=== PATIENT | male | born 1960 | race Caucasian/White ===

== ENCOUNTER 2018-08-26 11:33 | Emergency (ER) | payer OTHER ==
[~2018-08-26] VITALS: Ht 182.9 cm; Wt 104.5 kg
[2018-08-26 13:17] LABS: HEMATOCRIT 46.2 % (42.0-52.0); HEMOGLOBIN 15.9 g/dl (13.5-17.5); MEAN CORPUSCULAR HGB CONC 34.4 g/dl (32.0-36.5); MEAN CORPUSCULAR VOLUME 98.9 fl (80.0-96.0); PLATELET COUNT, AUTOMATED 328 10^3/uL (150-450); RED BLOOD COUNT 4.67 10^6/uL (4.30-6.10); WHITE BLOOD COUNT 9.8 10^3/uL (4.0-10.0)
[2018-08-26 13:50] LABS: AMPHETAMINES LEVEL URINE NEGATIVE (NEGATIVE); BARBITURATES URINE NEGATIVE (NEGATIVE); BENZODIAZEPINES URINE NEGATIVE (NEGATIVE); CANNABINOIDS URINE NEGATIVE (NEGATIVE); COCAINE METABOLITE URINE NEGATIVE (NEGATIVE); METHADONE URINE NEGATIVE (NEGATIVE); OPIATES URINE NEGATIVE (NEGATIVE); PHENCYCLIDINE URINE NEGATIVE (NEGATIVE)
[2018-08-26 13:52] LABS: ACETAMINOPHEN LEVEL < 2.0 UG/ML (10.0-30.0); ALBUMIN 3.7 GM/DL (3.2-5.2); ALT/SGPT 42 U/L (12-78); BILIRUBIN,DIRECT 0.1 MG/DL (0.0-0.2); BILIRUBIN,TOTAL 0.2 MG/DL (0.2-1.0); BLOOD UREA NITROGEN 7 MG/DL (7-18); CALCIUM LEVEL 8.9 MG/DL (8.5-10.1); CARBON DIOXIDE LEVEL 27 MEQ/L (21-32); CHLORIDE LEVEL 105 MEQ/L (98-107); ETHYL ALCOHOL (ETHANOL) 0.279 % (0.000-0.010); GLOMERULAR FILTRATION RATE > 60.0 (>56); GLUCOSE, FASTING 98 MG/DL (70-100); POTASSIUM SERUM 4.1 MEQ/L (3.5-5.1); SALICYLATE LEVEL < 1.7 MG/DL (5.0-30.0); SODIUM LEVEL 142 MEQ/L (136-145); TOTAL PROTEIN 7.9 GM/DL (6.4-8.2)
[2018-08-26] MEDS ORDERED: OXAZEPAM 15 MG CAP PO ONE ×2 (17:00→20:45)
[2018-08-26] MEDS ORDERED: LISI10TA4 PO (17:38)
[2018-08-26 17:45] VITALS: BP 180/110
[2018-08-26] MEDS ORDERED: LISINOPRIL 10 MG TAB PO ONE (17:45)
[2018-08-26] MEDS ORDERED: CHLORTHALIDONE 12.5MG PER 1/2 TABLET PO ONE (22:30)
[2018-08-26] MEDS ORDERED: cloNIDine 0.2 MG TAB PO ONE (23:00)
[2018-08-27] MEDS ORDERED: METAL LOCK LOOP XX ONE (04:32)
[2018-08-27] MEDS ORDERED: OXAZEPAM 15 MG CAP PO ONE ×2 (08:15→18:30)
[2018-08-27] MEDS ORDERED: LISINOPRIL 10 MG TAB PO ONE (18:30)
--- NOTE | 2018-08-28 08:15 | ECGEPIP ---
Stationary ECG Study [facility] - ED Test Date: 2018-08-26 Pat Name: SHONNA WATSON Department: Room: - Gender: M Sport Intern: : 1960 Requested By: Kael Villavicencio Order Number: [id number] Reading MD: Kael Hogan Measurements Intervals [place] Rate: 80 P: 52 AK: 152 QRS: 26 QRSD: 106 T: 30 QT: 379 QTc: 438 Interpretive Statements SINUS RHYTHM NO PRIORS FOR COMPARISON Electronically Signed On 08-28-2018 8:14:56 EST by Kael Hogan
[2018-08-28] MEDS ORDERED: OXAZEPAM 15 MG CAP PO ONE (11:30)
[2018-08-28 17:04] VITALS: BP 136/74
[2018-08-28] MEDS ORDERED: LISINOPRIL 10 MG TAB PO SCH (21:00)
[2018-10-04] MEDS ORDERED: GABA-843 PO (12:40)
[2018-10-04] MEDS ORDERED: SILD100T PO (12:40)
[2018-10-04] MEDS ORDERED: NALT50TA4 PO (12:40)
[2018-10-07] MEDS ORDERED: THIA100TA PO (08:35)
[2018-10-07] MEDS ORDERED: COLC1TAB13 PO (08:35)
[2018-10-07] MEDS ORDERED: FOLI1TAB11 PO (08:35)
[2018-10-07] MEDS ORDERED: AMLO10TA5 PO (08:35)
[2018-10-07] MEDS ORDERED: LISI-542 PO (08:35)
[2018-10-07] MEDS ORDERED: MULTCAP PO (08:35)
[2018-10-20] MEDS ORDERED: SM F PO (01:32)
[2018-10-20] MEDS ORDERED: VIAG100T PO (01:32)
[2018-10-20] MEDS ORDERED: RANI1TAB6 PO (01:32)
[2018-10-20] MEDS ORDERED: MULTCAP PO (01:32)
[2018-10-20] MEDS ORDERED: METO50TA7 PO (01:32)
[2018-10-20] MEDS ORDERED: NALT50TA4 PO (01:32)
[2018-10-20] MEDS ORDERED: ACAM0.05 PO (01:32)
[2018-10-20] MEDS ORDERED: COLC1TAB13 PO ×2 (01:32→02:43)
[2018-10-20] MEDS ORDERED: THIA100TA PO (01:32)
[2018-10-20] MEDS ORDERED: GABA-843 PO (01:32)
[2018-10-20] MEDS ORDERED: ALLO100T PO (01:32)
[2018-10-20] MEDS ORDERED: D 101TAB PO (01:32)
[2018-10-20] MEDS ORDERED: AMLO10TA5 PO (02:39)
[2018-10-20] MEDS ORDERED: LISI-542 PO (02:39)
[2018-10-20] MEDS ORDERED: VITMTA PO (02:39)
[2018-10-20] MEDS ORDERED: FOLI1TAB11 PO (02:39)
[2018-10-20] MEDS ORDERED: PATIENT COMMENTS (02:46)
== END 2018-08-28 17:05 ==
LOC: M ED 11:33
DX: R45.851 Suicidal ideations (principal); F32.9 Major depressive disorder, single episode, unspecified; F10.120 Alcohol abuse with intoxication, uncomplicated; I10 Essential (primary) hypertension; Z79.899 Other long term (current) drug therapy
CPT/HCPCS: 36415; 80048; 80076; 80307; 84443; 85027; 93005; 99285; G0480

== ENCOUNTER 2018-10-03 18:50 | Inpatient (IN) | payer OTHER ==
[2018-10-03 19:22] LABS: HEMATOCRIT 50.3 % (42.0-52.0); HEMOGLOBIN 17.2 g/dl (13.5-17.5); MEAN CORPUSCULAR HEMOGLOBIN 32.8 pg (27.0-33.0); MEAN CORPUSCULAR HGB CONC 34.2 g/dl (32.0-36.5); MEAN CORPUSCULAR VOLUME 95.8 fl (80.0-96.0); PLATELET COUNT, AUTOMATED 269 10^3/uL (150-450); RED BLOOD COUNT 5.25 10^6/uL (4.30-6.10); RED CELL DISTRIBUTION WIDTH 12.1 % (11.5-14.5); WHITE BLOOD COUNT 10.5 10^3/uL (4.0-10.0)
[2018-10-03 19:59] LABS: ACETAMINOPHEN LEVEL < 2.0 UG/ML (10.0-30.0); ALBUMIN 3.9 GM/DL (3.2-5.2); ALBUMIN/GLOBULIN RATIO 0.85 (1.00-1.93); ALKALINE PHOSPHATASE 63 U/L (45-117); ALT/SGPT 30 U/L (12-78); ANION GAP 12 MEQ/L (8-16); AST/SGOT 37 U/L (7-37); BILIRUBIN,DIRECT 0.1 MG/DL (0.0-0.2); BILIRUBIN,TOTAL 0.2 MG/DL (0.2-1.0); BLOOD UREA NITROGEN 15 MG/DL (7-18); CALCIUM LEVEL 8.5 MG/DL (8.5-10.1); CARBON DIOXIDE LEVEL 24 MEQ/L (21-32); CHLORIDE LEVEL 103 MEQ/L (98-107); CREATININE FOR GFR 0.85 MG/DL (0.70-1.30); ETHYL ALCOHOL (ETHANOL) 0.377 % (0.000-0.010); GLOMERULAR FILTRATION RATE > 60.0 (>56); GLUCOSE, FASTING 107 MG/DL (70-100); POTASSIUM SERUM 4.5 MEQ/L (3.5-5.1); SALICYLATE LEVEL < 1.7 MG/DL (5.0-30.0); SODIUM LEVEL 139 MEQ/L (136-145); TOTAL PROTEIN 8.5 GM/DL (6.4-8.2)
[2018-10-03 20:39] LABS: AMPHETAMINES LEVEL URINE NEGATIVE (NEGATIVE); BARBITURATES URINE NEGATIVE (NEGATIVE); BENZODIAZEPINES URINE NEGATIVE (NEGATIVE); CANNABINOIDS URINE NEGATIVE (NEGATIVE); COCAINE METABOLITE URINE NEGATIVE (NEGATIVE); METHADONE URINE NEGATIVE (NEGATIVE); OPIATES URINE NEGATIVE (NEGATIVE); PHENCYCLIDINE URINE NEGATIVE (NEGATIVE)
[2018-10-03] MEDS: LISINOPRIL 10 MG TAB PO (21:45)
[2018-10-04] MEDS: MULTIVITAMINS/MINERALS THERAP 1 TAB PO (08:44)
[2018-10-04] MEDS: FOLIC ACID 1 MG TAB PO (08:44)
[2018-10-04] MEDS: THIAMINE 100 MG TAB PO ×2 (08:44→20:28)
[2018-10-04] MEDS: LISINOPRIL 10 MG TAB PO (09:10)
[2018-10-04 10:37] LABS: ETHYL ALCOHOL (ETHANOL) 0.037 % (0.000-0.010)
[2018-10-04] MEDS: LORazepam 2 MG TAB PO ×2 (11:59→13:05)
[2018-10-04] MEDS: ACETAMINOPHEN TAB 650MG DOSE (2X325MG) PO (11:59)
[2018-10-04] MEDS: NS 1,000 ML IV (13:12)
[2018-10-04] MEDS: LORazepam 2 MG/ML VIAL (J2060) IV (13:41)
[2018-10-04] MEDS: MULTIVITAMIN -ADULT INJECTION 10 ML, THIAMINE INJection 100 MG, FOLIC ACID 1 MG in NS 1... IV (14:00)
[2018-10-04 14:14] LABS: BASO # 0.1 10^3/uL (0.0-0.2); BASO % 0.9 % (0.0-1.0); EOS % 0.2 % (0.0-3.0); HEMATOCRIT 46.6 % (42.0-52.0); HEMOGLOBIN 15.8 g/dl (13.5-17.5); IMMATURE GRANULOCYTE % 0.3 % (0-3.0); LYMPH # 2.2 10^3/uL (1.5-4.5); LYMPH % 18.9 % (24.0-44.0); MEAN CORPUSCULAR HEMOGLOBIN 33.1 pg (27.0-33.0); MEAN CORPUSCULAR HGB CONC 33.9 g/dl (32.0-36.5); MEAN CORPUSCULAR VOLUME 97.5 fl (80.0-96.0); NEUTROPHILS # 8.2 10^3/uL (1.8-7.7); NEUTROPHILS % 70.7 % (36.0-66.0); PLATELET COUNT, AUTOMATED 217 10^3/uL (150-450); RED BLOOD COUNT 4.78 10^6/uL (4.30-6.10); RED CELL DISTRIBUTION WIDTH 11.9 % (11.5-14.5); WHITE BLOOD COUNT 11.6 10^3/uL (4.0-10.0)
[2018-10-04 14:32] LABS: ANION GAP 10 MEQ/L (8-16); BLOOD UREA NITROGEN 13 MG/DL (7-18); CALCIUM LEVEL 8.1 MG/DL (8.5-10.1); CARBON DIOXIDE LEVEL 26 MEQ/L (21-32); CHLORIDE LEVEL 101 MEQ/L (98-107); CREATININE FOR GFR 0.72 MG/DL (0.70-1.30); GLOMERULAR FILTRATION RATE > 60.0 (>56); GLUCOSE, FASTING 89 MG/DL (70-100); POTASSIUM SERUM 4.1 MEQ/L (3.5-5.1); SODIUM LEVEL 137 MEQ/L (136-145)
[2018-10-04] MEDS ORDERED: chlordiazePOXIDE 25 MG CAP PO (14:45)
[2018-10-04] MEDS ORDERED: ONDANSETRON 4 MG TAB (S0181) PO (14:45)
[2018-10-04] MEDS: **hydrALAZINE** 10 MG TAB PO (20:29)
[2018-10-04] MEDS: amLODIPine 5 MG TAB PO (21:41)
[2018-10-05] MEDS: **hydrALAZINE** 10 MG TAB PO (00:56)
[2018-10-05 05:38] LABS: HEMATOCRIT 43.7 % (42.0-52.0); HEMOGLOBIN 14.9 g/dl (13.5-17.5); MEAN CORPUSCULAR HEMOGLOBIN 33.4 pg (27.0-33.0); MEAN CORPUSCULAR HGB CONC 34.1 g/dl (32.0-36.5); PLATELET COUNT, AUTOMATED 193 10^3/uL (150-450); RED BLOOD COUNT 4.46 10^6/uL (4.30-6.10); RED CELL DISTRIBUTION WIDTH 11.8 % (11.5-14.5); WHITE BLOOD COUNT 9.4 10^3/uL (4.0-10.0)
[2018-10-05 06:05] LABS: ANION GAP 5 MEQ/L (8-16); BLOOD UREA NITROGEN 14 MG/DL (7-18); CALCIUM LEVEL 8.2 MG/DL (8.5-10.1); CARBON DIOXIDE LEVEL 29 MEQ/L (21-32); CHLORIDE LEVEL 101 MEQ/L (98-107); CREATININE FOR GFR 0.76 MG/DL (0.70-1.30); GLOMERULAR FILTRATION RATE > 60.0 (>56); GLUCOSE, FASTING 109 MG/DL (70-100); SODIUM LEVEL 135 MEQ/L (136-145)
[2018-10-05] MEDS: THIAMINE 100 MG TAB PO (07:58)
[2018-10-05] MEDS: amLODIPine 5 MG TAB PO ×2 (07:58→15:23)
[2018-10-05] MEDS: OXAZEPAM 10 MG CAP PO ×3 (07:58→21:24)
[2018-10-05] MEDS: FOLIC ACID 1 MG TAB PO (07:58)
[2018-10-05] MEDS: MULTIVITAMINS/MINERALS THERAP 1 TAB PO (07:58)
[2018-10-05] MEDS: ENOXAPARIN 30 MG/0.3 ML SYR (J1650) SC (09:00)
[2018-10-05] MEDS: LISINOPRIL 5 MG TAB PO (21:24)
[2018-10-06 05:32] LABS: HEMATOCRIT 44.2 % (42.0-52.0); HEMOGLOBIN 14.7 g/dl (13.5-17.5); MEAN CORPUSCULAR HEMOGLOBIN 32.9 pg (27.0-33.0); MEAN CORPUSCULAR HGB CONC 33.3 g/dl (32.0-36.5); MEAN CORPUSCULAR VOLUME 98.9 fl (80.0-96.0); PLATELET COUNT, AUTOMATED 200 10^3/uL (150-450); RED BLOOD COUNT 4.47 10^6/uL (4.30-6.10); RED CELL DISTRIBUTION WIDTH 11.7 % (11.5-14.5); WHITE BLOOD COUNT 7.1 10^3/uL (4.0-10.0)
[2018-10-06 05:59] LABS: ANION GAP 5 MEQ/L (8-16); BLOOD UREA NITROGEN 11 MG/DL (7-18); CALCIUM LEVEL 8.4 MG/DL (8.5-10.1); CARBON DIOXIDE LEVEL 29 MEQ/L (21-32); CHLORIDE LEVEL 102 MEQ/L (98-107); CREATININE FOR GFR 0.75 MG/DL (0.70-1.30); GLOMERULAR FILTRATION RATE > 60.0 (>56); GLUCOSE, FASTING 119 MG/DL (70-100); POTASSIUM SERUM 4.3 MEQ/L (3.5-5.1); SODIUM LEVEL 136 MEQ/L (136-145)
[2018-10-06] MEDS: OXAZEPAM 10 MG CAP PO ×2 (06:26→14:15)
[2018-10-06] MEDS: THIAMINE 100 MG TAB PO (08:44)
[2018-10-06] MEDS: MULTIVITAMINS/MINERALS THERAP 1 TAB PO (08:44)
[2018-10-06] MEDS: ENOXAPARIN 30 MG/0.3 ML SYR (J1650) SC (08:44)
[2018-10-06] MEDS: FOLIC ACID 1 MG TAB PO (08:44)
[2018-10-06] MEDS: LISINOPRIL 5 MG TAB PO ×2 (08:45→21:14)
[2018-10-06] MEDS: amLODIPine 10 MG TAB PO (08:45)
[2018-10-06] MEDS: ACETAMINOPHEN 325 MG TAB PO (11:29)
[2018-10-06] MEDS: COLCHICINE 0.6 MG TAB PO ×2 (15:34→16:30)
[2018-10-06 16:26] LABS: C REACTIVE PROTEIN QUANTITATIV 1.02 MG/DL (0.00-0.30)
[2018-10-06 16:42] LABS: ERYTHROCYTE SEDIMENTATION RATE 2 mm/hr (0-20)
[2018-10-07] MEDS ORDERED: SLF 3 ML SYR IV (04:00)
[2018-10-07 04:48] LABS: HEMATOCRIT 43.5 % (42.0-52.0); HEMOGLOBIN 14.8 g/dl (13.5-17.5); MEAN CORPUSCULAR HEMOGLOBIN 33.3 pg (27.0-33.0); MEAN CORPUSCULAR VOLUME 97.8 fl (80.0-96.0); PLATELET COUNT, AUTOMATED 206 10^3/uL (150-450); RED BLOOD COUNT 4.45 10^6/uL (4.30-6.10); RED CELL DISTRIBUTION WIDTH 11.6 % (11.5-14.5); WHITE BLOOD COUNT 11.5 10^3/uL (4.0-10.0)
[2018-10-07 05:13] LABS: ANION GAP 7 MEQ/L (8-16); BLOOD UREA NITROGEN 13 MG/DL (7-18); C REACTIVE PROTEIN QUANTITATIV 1.11 MG/DL (0.00-0.30); CALCIUM LEVEL 8.3 MG/DL (8.5-10.1); CARBON DIOXIDE LEVEL 26 MEQ/L (21-32); CHLORIDE LEVEL 102 MEQ/L (98-107); CREATININE FOR GFR 0.75 MG/DL (0.70-1.30); GLOMERULAR FILTRATION RATE > 60.0 (>56); GLUCOSE, FASTING 108 MG/DL (70-100); POTASSIUM SERUM 4.1 MEQ/L (3.5-5.1); SODIUM LEVEL 135 MEQ/L (136-145)
[2018-10-07] MEDS: SLF 3 ML SYR IV (05:13)
[2018-10-07 06:04] LABS: ERYTHROCYTE SEDIMENTATION RATE 6 mm/hr (0-20)
[2018-10-07] MEDS: FOLIC ACID 1 MG TAB PO (08:54)
[2018-10-07] MEDS: COLCHICINE 0.6 MG TAB PO (08:54)
[2018-10-07] MEDS: MULTIVITAMINS/MINERALS THERAP 1 TAB PO (08:54)
[2018-10-07] MEDS: LISINOPRIL 5 MG TAB PO (08:54)
[2018-10-07] MEDS: THIAMINE 100 MG TAB PO (08:54)
[2018-10-07] MEDS: amLODIPine 10 MG TAB PO (08:55)
[2018-10-07] MEDS: ENOXAPARIN 30 MG/0.3 ML SYR (J1650) SC (08:55)
== END 2018-10-07 10:43 | disposition home or self-care (01) | DRG 897 ==
LOC: M ED 18:50 → M ED INP 10-04 14:33 → M PCU 10-04 15:38
DX: F10.239 Alcohol dependence with withdrawal, unspecified (principal); R45.851 Suicidal ideations; I16.0 Hypertensive urgency; R45.850 Homicidal ideations; D72.829 Elevated white blood cell count, unspecified; M10.9 Gout, unspecified; Z91.14 Patient's other noncompliance with medication regimen; I10 Essential (primary) hypertension; Z79.899 Other long term (current) drug therapy

== ENCOUNTER 2018-10-24 13:09 | Inpatient (IN) | payer OTHER ==
[~2018-10-24 13:09] MED LIST: ACAM0.05 PO; ALLO100T PO; AMLO10TA5 PO; COLC1TAB13 PO; D 101TAB PO; FOLI1TAB11 PO; GABA-843 PO; LISI-542 PO; LISI10TA4 PO; METO50TA7 PO; MULTCAP PO; NALT50TA4 PO; PATIENT COMMENTS; RANI1TAB6 PO; SILD100T PO; SM F PO; THIA100TA PO; VIAG100T PO; VITMTA PO
[2018-10-24] MEDS ORDERED: MOM 30ML SUSPENSION UDC PO PRN (13:30)
[2018-10-24] MEDS ORDERED: MAALOX 30 ML SUSP *UDC PO PRN (13:30)
[2018-10-24 14:30] VITALS: BP 143/78
[2018-10-24 16:41] VITALS: BP 150/90
[2018-10-24] MEDS ORDERED: COLCHICINE 0.6 MG TAB PO PRN (17:15)
[2018-10-24] MEDS ORDERED: OXAZEPAM 15 MG CAP PO PRN (17:45)
[2018-10-24] MEDS: METOPROLOL TART 50 MG TAB PO SCH (20:49)
[2018-10-24] MEDS: GABAPENTIN 300 MG CAP PO SCH (20:49)
[2018-10-24] MEDS: FAMOTIDINE 20 MG TAB PO SCH (20:49)
[2018-10-24] MEDS: LISINOPRIL 5 MG TAB PO SCH (20:49)
[2018-10-24] MEDS: ACETAMINOPHEN TAB 650MG DOSE (2X325MG) PO PRN (20:50)
[2018-10-25 06:00] VITALS: BP 151/72
[2018-10-25] MEDS: FAMOTIDINE 20 MG TAB PO SCH ×2 (08:48→21:31)
[2018-10-25] MEDS: THIAMINE 100 MG TAB PO SCH (08:48)
[2018-10-25] MEDS: amLODIPine 10 MG TAB PO SCH (08:48)
[2018-10-25] MEDS: MULTIVITAMINS/MINERALS THERAP 1 TAB PO SCH (08:48)
[2018-10-25] MEDS: GABAPENTIN 300 MG CAP PO SCH ×3 (08:48→21:31)
[2018-10-25] MEDS: VITAMIN D 1,000 INTERNATIONAL UNITS TABLET PO SCH (08:48)
[2018-10-25] MEDS: FOLIC ACID 1 MG TAB PO SCH (08:48)
[2018-10-25] MEDS: ALLOPURINOL 100 MG TAB PO SCH (08:48)
[2018-10-25] MEDS: METOPROLOL TART 50 MG TAB PO SCH ×2 (08:48→21:31)
[2018-10-25] MEDS: ACETAMINOPHEN TAB 650MG DOSE (2X325MG) PO PRN ×3 (08:49→21:32)
[2018-10-25] MEDS: LISINOPRIL 5 MG TAB PO SCH ×2 (08:49→21:31)
[2018-10-25 08:50] VITALS: BP 138/88
[2018-10-25 12:00] VITALS: BP 129/67
[2018-10-25 18:00] VITALS: BP 136/78
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
[2018-10-26 06:00] VITALS: BP 144/76
[2018-10-26] MEDS: amLODIPine 10 MG TAB PO SCH (08:11)
[2018-10-26] MEDS: VITAMIN D 1,000 INTERNATIONAL UNITS TABLET PO SCH (08:11)
[2018-10-26] MEDS: ALLOPURINOL 100 MG TAB PO SCH (08:11)
[2018-10-26] MEDS: GABAPENTIN 300 MG CAP PO SCH ×3 (08:11→21:39)
[2018-10-26] MEDS: LISINOPRIL 5 MG TAB PO SCH ×2 (08:12→21:39)
[2018-10-26] MEDS: FAMOTIDINE 20 MG TAB PO SCH ×2 (08:12→21:39)
[2018-10-26] MEDS: METOPROLOL TART 50 MG TAB PO SCH ×2 (08:12→21:40)
[2018-10-26] MEDS: MULTIVITAMINS/MINERALS THERAP 1 TAB PO SCH (08:12)
[2018-10-26] MEDS: FOLIC ACID 1 MG TAB PO SCH (08:12)
[2018-10-26] MEDS: THIAMINE 100 MG TAB PO SCH (08:12)
[2018-10-26] MEDS: ACETAMINOPHEN TAB 650MG DOSE (2X325MG) PO PRN ×2 (08:13→21:41)
[2018-10-26] MEDS: FLUoxetine 10 MG CAP PO SCH (12:34)
[2018-10-26 18:00] VITALS: BP 128/61
[2018-10-26] MEDS: traZODone 50 MG TAB PO PRN ×2 (21:41→22:29)
[2018-10-27 06:17] VITALS: BP 140/73
[2018-10-27 07:16] LABS: ERYTHROCYTE SEDIMENTATION RATE 36 mm/hr (0-20)
[2018-10-27 07:17] LABS: C REACTIVE PROTEIN QUANTITATIV 1.45 MG/DL (0.00-0.30)
[2018-10-27 08:20] LABS: BLOOD UREA NITROGEN 13 MG/DL (7-18); CALCIUM LEVEL 9.3 MG/DL (8.5-10.1); CARBON DIOXIDE LEVEL 29 MEQ/L (21-32); CHLORIDE LEVEL 102 MEQ/L (98-107); CREATININE FOR GFR 0.75 MG/DL (0.70-1.30); GLOMERULAR FILTRATION RATE > 60.0 (>56); GLUCOSE, FASTING 110 MG/DL (70-100); POTASSIUM SERUM 4.1 MEQ/L (3.5-5.1); SODIUM LEVEL 141 MEQ/L (136-145)
[2018-10-27] MEDS: FAMOTIDINE 20 MG TAB PO SCH ×2 (08:57→21:41)
[2018-10-27] MEDS: GABAPENTIN 300 MG CAP PO SCH ×3 (08:57→21:37)
[2018-10-27] MEDS: VITAMIN D 1,000 INTERNATIONAL UNITS TABLET PO SCH (08:57)
[2018-10-27] MEDS: MULTIVITAMINS/MINERALS THERAP 1 TAB PO SCH (08:57)
[2018-10-27] MEDS: THIAMINE 100 MG TAB PO SCH (08:57)
[2018-10-27] MEDS: FOLIC ACID 1 MG TAB PO SCH (08:57)
[2018-10-27] MEDS: FLUoxetine 10 MG CAP PO SCH (08:57)
[2018-10-27] MEDS: amLODIPine 10 MG TAB PO SCH (08:58)
[2018-10-27] MEDS: METOPROLOL TART 50 MG TAB PO SCH ×2 (08:58→21:38)
[2018-10-27] MEDS: LISINOPRIL 5 MG TAB PO SCH ×2 (08:58→21:37)
[2018-10-27] MEDS: ALLOPURINOL 100 MG TAB PO SCH (08:58)
[2018-10-27 09:07] LABS: HEMATOCRIT 43.5 % (42.0-52.0); HEMOGLOBIN 14.7 g/dl (13.5-17.5); MEAN CORPUSCULAR HGB CONC 33.8 g/dl (32.0-36.5); MEAN CORPUSCULAR VOLUME 97.5 fl (80.0-96.0); PLATELET COUNT, AUTOMATED 315 10^3/uL (150-450); RED BLOOD COUNT 4.46 10^6/uL (4.30-6.10); WHITE BLOOD COUNT 12.4 10^3/uL (4.0-10.0)
[2018-10-27] MEDS: ACETAMINOPHEN TAB 650MG DOSE (2X325MG) PO PRN ×2 (09:31→21:42)
--- NOTE | 2018-10-27 09:50 | MHIPN ---
DATE: 10/26/2018 CHIEF COMPLAINT: Says feels better. SUBJECTIVE: Seen for followup. Indicates feels better, and that his mood is better. Says had a better night. Has been eating okay. Has been engaging with others. Denies any cravings for alcohol. MENTAL STATUS EXAMINATION: He is neat, he is cooperative, there is no agitation, no psychomotor retardation. Appears more relaxed, with a broader affect. He denies any thoughts of harming himself or anyone else at present. Does not appear internally preoccupied. Cognition grossly intact. Judgment is improved. Insight fair. ASSESSMENT: Other specified depressive disorder. Alcohol use disorder. Consider alcohol induced depressive disorder. The possibility of major depressive disorder as comorbid to alcohol use is also to be considered. PLAN: He will be started on Prozac at 10 mg daily, to be titrated upwards as per requirement. He is to be encouraged to participate in activities in the unit. Says he has had no cravings of alcohol. He will be seeing the treatment team as well as the psychiatrist tomorrow, and further recommendations will be made depending on the clinical picture. VITAL SIGNS: Blood pressure 138/90, pulse 72. We will continue with current precautions, including withdrawal precautions.
--- NOTE | 2018-10-27 14:23 | IPNPDOC ---
Date Seen The patient was seen on 10/27/18. Progress Note HPI: 58yoM admitted to [facility] for depressive disorder, being medically examined today. No acute medical complaints today. The pt reports his Rt elbow has been continuing to improve. Decreased pain, increased ROM. Decreased erythema and TTP. Denies any fevers, chills, weakness, fatigue, ALFARO, CP, SOB, cough, palpitations, abdominal pain, N/V/D or changes in bowel or bladder habits. PMH Acute toxic encephalopathy due to alcohol intoxication requiring airway protection s/p intubation and mechanical ventilation [facility] 10/20 to 10/21/18. Right Elbow / wrist pain/bone spurs right knee pain history of gout Suicide Ideation/Attempt Hypertension History of alcohol use. Erectile dysfunction. PE: GEN: 58yoM, appears stated age. Well-nourished, well developed. No acute dis tress. Alert and oriented x 3. Pleasant, interactive. HEENT: Normocephalic, atraumatic. Pupils are equal, round, and reactive to light. Extraocular movements are intact. No nystagmus appreciated. Sclera are nonicteric. Conjunctiva without injection. Nose midline. Nasal turbinates without bogginess. CHEST: Regular rate and rhythm, +S1, +S2 LUNGS: Clear to auscultation bilaterally. ABD: Round, soft, non-tender, non-distended. +Bowel sounds throughout. EXT: No lower extremity edema appreciated. Mild TTP around the Rt elbow, mils erythema and edema at the area of the olecranon bursa. SKIN: [place], dry, warm. No rashes. NEURO: No focal deficits appreciated. EKG 10/20/18 SINUS TACHYCARDIA WITH SHORT [place] INTERVAL NONSPECIFIC T-WAVE ABNORMALITY ABNORMAL RHYTHM ECG INCREASED RATE 10/04/18 Electronically Signed On 10-20-2018 13:46:21 EST by Kamille Aguiar A&P: 58yoM admitted to [facility] for depressive disorder Psych. Plan per Psychiatry. EKG on file. Follow up with PCP on discharge. Substance use. Management per psychiatry. Continue with MVI, Thiamine, and Folic Acid supplementation. Right Elbow /wrist pain/bone spurs. Orthopedics evaluated 10/23/18 and felt this was related to ulnar nerve contusion vs Olecranon bursitis. XR and CT reviewed by Orthopedics. Very minimal degenerative changes in the wrist and elbow joints. No fractures, no dislocations. ortho consulted Recommended monitor ESR and CRP. No indication for any splint or cast. Recommended continuing to work on wrist and elbow range of motion. Outpt F/U and plan for EMG. right knee pain Gabapentin 300mg TID. Tylenol as needed. history of gout on colchicine prn Allopurinol 100 mg daily. Hypertension. Metoprolol 50 mg BID, lisinopril 5 mg BID, norvasc 10 mg daily SBP 128-140 monitor VS, I&O, [facility] Sign[facility]/I&O Vital Signs Date Time Temp Pulse Resp B/P (MAP) Pulse Ox O2 Delivery O2 Flow Rate FiO2 10/27/18 08:58 59 140/73 10/27/18 06:17 97.3 14 Room Air 10/25/18 08:27 98.0 Laboratory Data 24H LABS Laboratory Tests 2 10/27/18 06:25: Nucleated Red Blood Cells % (auto) 0.0, Erythrocyte Sedimentation Rate 36H, Anion Gap 10, Glomerular Filtration Rate > 60.0, Blood Urea Nitrogen 13, Creatinine 0.75, Sodium Level 141, Potassium Level 4.1, Chloride Level 102, Carbon Dioxide Level 29, Calcium Level 9.3, C-Reactive Protein, Quantitative 1.45H CBC/BMP Laboratory Tests 10/27/18 06:25 Red Blood Count 4.46, Mean Corpuscular Volume 97.5 H, Mean Corpuscular Hemoglobin 33.0, Mean Corpuscular Hemoglobin Concent 33.8, Red Cell Distribution Width 12.0, Calcium Level 9.3 Lali Artis Oct 27, 2018 14:23
--- NOTE | 2018-10-27 14:23 | MHIPNPDOC ---
[facility] Progress Note Progress Note DATE OF SERVICE: 10/27/18 HISTORY: As per Dr. Barrett: "He is 58 years old and has a partner. He has been on a couple of occasions, has two daughters, both of whom live in the area, he is close with them. He is admitted to the inpatient psychiatry unit after he had come to the hospital a few days ago, had been drinking, and had felt suicidal. Was quite intoxicated, developed encephalopathy, delirium, was intubated, r evived, extubated, an afterwards I saw him on the medical floor, please refer to my consultation summary of 10/21/2018 (not 2018 as stated on the note). The consultation note includes the circumstances of the patient's hospitalization, background history, medical history. Has a long history of being dependent on alcohol, was in fact seen here on [place] by psychiatry, and at that time it was decided that he followup as an [facility] He attended it and was given recommendations to see various facilities, including for alcohol dependence in this area. It should be noted that he says that he remembered seeing me before, was not quite sure when, thought it might have been over rather than 4 days ago. He says that his partner has visited and they are getting along, want to work things out, says plans to spend lubin, from next winter, in [place]. He has been visited by his mother, says the visit went well." VITAL SIGNS: See below. NEW TEST RESULTS: See below CURRENT MEDICATIONS: See below. MENTAL STATUS EXAMINATION: Patient is a 58-year old male, who is ALERT, DRESSED IN PERSONAL CLOTHES, COOPERATIVE, WITH GOOD EYE CONTACT. Speech: Is NORMAL IN RATE, TONE AND VOLUME. Language skills are GOOD. Thought processes including: linear, coherent Thought content: depressed thoughts about being depressed, about relapsing with his alcohol consumption, anxious thoughts about paying bills. Description of abnormal or psychotic thoughts: Denies AV hallucinations, denies thought delusions, denies SI/HI Judgment: Poor Insight: Poor Orientation: x 3 Recent and remote memory: good Attention span and concentration: good Language: normal Fund of knowledge: average Mood: depressed. Affect: congruent with mood, sad, depressed DIAGNOSES: Other specified depressive disorder. Alcohol use disorder. Consider alcohol induced depressive disorder. The possibility of major depressive disorder as comorbid to alcohol use is also to be considered. ASSESSMENT: patient says he doesn't want to drink anymore, he requests a medication that would help him quit, he mentions he talked with DR. Barrett about an injection that would help him to stay away from alcohol and apparently they spoke about the possibility of going to [facility] and receiving the injection.I will start him on Revia 50 mgs Po daily MANAGEMENT PLAN: Will continue with the current treatment plan and will start him on Revia 50 mgs PO TIME SPENT: 25 minutes. Vital Signs Vital Signs Date Time Temp Pulse Resp B/P (MAP) Pulse Ox O2 Delivery O2 Flow Rate FiO2 10/27/18 08:58 59 140/73 10/27/18 06:17 97.3 14 Room Air 10/25/18 08:27 98.0 Laboratory Data 24H Labs Laboratory Tests 2 10/27/18 06:25: Nucleated Red Blood Cells % (auto) 0.0, Erythrocyte Sedimentation Rate 36H, Anion Gap 10, Glomerular Filtration Rate > 60.0, Blood Urea Nitrogen 13, Creatinine 0.75, Sodium Level 141, Potassium Level 4.1, Chloride Level 102, Carbon Dioxide Level 29, Calcium Level 9.3, C-Reactive Protein, Quantitative 1.45H CBC/BMP Laboratory Tests 10/27/18 06:25 Red Blood Count 4.46, Mean Corpuscular Volume 97.5 H, Mean Corpuscular Hemoglobin 33.0, Mean Corpuscular Hemoglobin Concent 33.8, Red Cell Distribution Width 12.0, Calcium Level 9.3 Current Medications Current Medications Acetaminophen (Tylenol Tab) 650 mg Q6HP PRN PO HEADACHE or DISCOMFORT Last administered on 10/27/18at 09:31; Start 10/24/18 at 13:30 Al Hydrox/Mg Hydrox/Simethicone (Mylanta) 30 ml Q4HP PRN PO HEARTBURN/INDIGESTION; Start 10/24/18 at 13:30 Allopurinol (Zyloprim) 100 mg DAILY PO Last administered on 10/27/18at 08:58; Start 10/25/18 at 09:00 Amlodipine Besylate (Norvasc) 10 mg DAILY PO Last administered on 10/27/18at 08:58; Start 10/25/18 at 09:00 Colchicine (Colcrys) 0.6 mg TIDP PRN PO GOUT PAIN; Start 10/24/18 at 17:15 Famotidine (Pepcid) 20 mg BID PO Last administered on 10/27/18 08:57; Start 10/24/18 at 21:00 Fluoxetine HCl (PROzac) 10 mg DAILY PO Last administered on 10/27/18 08:57; Start 10/26/18 at 12:30 Folic Acid (Folic Acid) 1 mg DAILY PO Last administered on 10/27/18 08:57; Start 10/25/18 at 09:00 Gabapentin (Neurontin) 300 mg TID PO Last administered on 10/27/18 08:57; Start 10/24/18 at 21:00 Lisinopril (Prinivil) 5 mg BID PO Last administered on 10/27/18 08:58; Start 10/24/18 at 21:00 Magnesium Hydroxide (Milk Of Magnesia) 30 ml DAILYPRN PRN PO CONSTIPATION; Start 10/24/18 at 13:30 Metoprolol Tartrate (Lopressor) 50 mg BID PO Last administered on 10/27/18 08:58; Start 10/24/18 at 21:00 Multivitamins (Theragram-M) 1 tab DAILY PO Last administered on 10/27/18 08:57; Start 10/25/18 at 09:00 Oxazepam (Serax) 30 mg Q6HP PRN PO SEE COMMENTS; Start 10/24/18 at 17:45 Thiamine HCl (Thiamine HCl) 100 mg DAILY PO Last administered on 10/27/18 08:57; Start 10/25/18 at 09:00 Trazodone HCl (Desyrel) 50 mg QHSP PRN PO INSOMNIA Last administered on 10/26/18 22:29; Start 10/24/18 at 13:30 Vitamin D (Vitamin D) 1,000 units DAILY PO Last administered on 10/27/18 08:57; Start 10/25/18 at 09:00 Allergies Coded Allergies: No Known Drug Allergy (Verified Allergy, Unknown, 08/26/18) PAUL KELLER MD Oct 27, 2018 13:58
--- NOTE | 2018-10-27 14:33 | HPE ---
DATE OF ADMISSION: 10/24/2018 HISTORY OF PRESENT ILLNESS: Please refer to psychiatric history and evaluation for further details on this admission. This examination and history is intended for medical issues, which may need treatment, followup or consultation on this 58-year-old male who was transferred from the intensive care unit (ICU) after having been intubated, treated for acute toxic encephalopathy due to alcohol intoxication, subsequently extubated, stabilized and transferred, discharged and transferred to be admitted to the inpatient mental health unit. 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 ETOH who was drinking a quart of gin of a day. He does not smoke cigarettes. He does not use recreational drugs. He would like assistance in quitting alcohol. He states he is ready. PAST MEDICAL HISTORY: 1. He had a fall in the ICU. He had complaints of a pain in his right elbow and wrist which showed bone spurs. He had Toradol, colchicine and ice packs. He had no signs of compartment syndrome. Orthopedics was consulted and recommended daily C-reactive protein (CRP) and erythrocyte sedimentation rate (ESR) for five days. If increased in trend, he may need antibiotics for possible cellulitis and to reconsult orthopedics for aspiration. The elbow is continuing to improve. Will see that he has a followup appointment with orthopedics as an outpatient. 2. History of alcohol abuse. 3. History of gout. 4. History of suicidal ideation with prior attempt. 5. History of hypertension. 6. History of erectile dysfunction. ALLERGIES: No known drug allergies. HOME MEDICATIONS: - Acamprosate/Campral 330 mg by mouth which he states he had not really taken consistently at all - naltrexone 50 mg by mouth daily which he states he does not know if he even took at all - Viagra 100 mg as needed for erectile dysfunction - allopurinol 100 mg by mouth daily - amlodipine 10 mg by mouth daily - vitamin D 1000 units daily - colchicine 0.6 mg by mouth three times a day as needed for gout pain - folic acid 1 mg by mouth daily - gabapentin 300 mg by mouth three times a day - lisinopril 5 mg by mouth twice a day - metoprolol 50 mg by mouth twice a day - daily - thiamine 100 mg by mouth daily - Ranitidine 150 mg by mouth twice a day C-reactive protein on 10/25/2018 was down to 3.0, on 10/26/2018 down to 1.99, will recheck in the a.m. Sed rate had been 51 on 10/25/2018. It is down to 42 on 10/26/2018. Will recheck again in the a.m. Will check a uric acid. REVIEW OF SYSTEMS: 10 systems review was done. The patient still complained of some pain and tenderness in the right elbow but stated it was much improved. Otherwise, no specific problems, was unremarkable. PHYSICAL EXAMINATION: GENERAL: 58-year-old cooperative male in no acute distress. VITAL SIGNS: Blood pressure 143/78, pulse 60, respirations 16, temperature 98.6, Oxygen sat 91% on room air. GENERAL: The patient is awake, alert and oriented times three. HEENT: Pupils equal, round, reactive to light. Extraocular muscles intact. Cornea and sclerae clear. Conjunctiva is normal. No facial asymmetry. Pharynx, tongue and gum is pink and moist. Tongue is midline. NECK: Neck is supple without lymphadenopathy. No thyromegaly. No goiter. Carotids 2+ without bruit. CHEST: Clear to auscultation without wheeze or retraction. HEART: Heart is regular without murmur or gallop. Jugular venous pressure is below clavicle. ABDOMEN: Soft, nontender, nondistended. No masses, or bruits. No organomegaly. Bowel sounds positive. GENITOURINARY ()/RECTAL: Not done. EXTREMITIES: No cyanosis, clubbing or edema. Right knee edema, full range of motion. Right elbow can extend and flex now. Slightly swollen on the very end of the elbow with slight increase redness. Peripheral pulses palpable bilaterally. SKIN: Warm and dry. IMPRESSION/PLAN: 1. Psychiatric plan as per psychiatry. 2. Right elbow and wrist pain. Continue monitoring to see sedimentation rate and C-reactive protein. If trend is back up notify orthopedics. Monitor for continued improvement. The patient will need a followup outpatient appointment with orthopedic group for the right elbow. Monitor for decreasing redness and swelling, if increases will need to treat a cellulitis, notify orthopedics. Will check a uric acid level. 3. History of hypertension. Continue medications and monitoring. 4. ETOH abuse. Assist patient in finding a program for his alcoholism. 5. Erectile dysfunction. Status quo. 6. Hypertension. Currently clinically stable.
[2018-10-27 18:00] VITALS: BP 118/60
[2018-10-27 21:00] VITALS: BP 130/80
[2018-10-28 06:36] VITALS: BP 127/77
[2018-10-28 07:57] LABS: HEMATOCRIT 43.7 % (42.0-52.0); HEMOGLOBIN 14.4 g/dl (13.5-17.5); PLATELET COUNT, AUTOMATED 366 10^3/uL (150-450); RED BLOOD COUNT 4.37 10^6/uL (4.30-6.10); WHITE BLOOD COUNT 11.8 10^3/uL (4.0-10.0)
[2018-10-28 08:03] LABS: BLOOD UREA NITROGEN 16 MG/DL (7-18); C REACTIVE PROTEIN QUANTITATIV 1.14 MG/DL (0.00-0.30); CALCIUM LEVEL 9.5 MG/DL (8.5-10.1); CARBON DIOXIDE LEVEL 30 MEQ/L (21-32); CHLORIDE LEVEL 102 MEQ/L (98-107); CREATININE FOR GFR 0.78 MG/DL (0.70-1.30); GLOMERULAR FILTRATION RATE > 60.0 (>56); GLUCOSE, FASTING 90 MG/DL (70-100); POTASSIUM SERUM 4.8 MEQ/L (3.5-5.1); SODIUM LEVEL 139 MEQ/L (136-145)
[2018-10-28] MEDS: amLODIPine 10 MG TAB PO SCH (08:08)
[2018-10-28] MEDS: ALLOPURINOL 100 MG TAB PO SCH (08:08)
[2018-10-28] MEDS: GABAPENTIN 300 MG CAP PO SCH ×2 (08:08→15:45)
[2018-10-28] MEDS: FOLIC ACID 1 MG TAB PO SCH (08:08)
[2018-10-28] MEDS: METOPROLOL TART 50 MG TAB PO SCH (08:08)
[2018-10-28] MEDS: THIAMINE 100 MG TAB PO SCH (08:08)
[2018-10-28 08:09] VITALS: BP 127/77
[2018-10-28] MEDS: LISINOPRIL 5 MG TAB PO SCH (08:09)
[2018-10-28] MEDS: VITAMIN D 1,000 INTERNATIONAL UNITS TABLET PO SCH (08:09)
[2018-10-28] MEDS: MULTIVITAMINS/MINERALS THERAP 1 TAB PO SCH (08:09)
[2018-10-28] MEDS: FAMOTIDINE 20 MG TAB PO SCH (08:09)
[2018-10-28 08:26] LABS: ERYTHROCYTE SEDIMENTATION RATE 28 mm/hr (0-20)
[2018-10-28] MEDS ORDERED: FLUoxetine 20 MG CAP PO SCH (09:00)
[2018-10-28] MEDS ORDERED: NALTREXONE 50 MG TAB PO SCH (09:00)
--- NOTE | 2018-10-28 11:35 | IPNPDOC ---
Date Seen The patient was seen on 10/28/18. Progress Note HPI: 58yoM admitted to [facility] for depressive disorder, being medically examined today. No acute medical complaints today. The pt reports his Rt elbow pain has been continuing to improve. Decreased pain, increased ROM. Decreased erythema and TTP. Denies any fevers, chills, weakness, fatigue, ALFARO, CP, SOB, cough, palpitations, abdominal pain, N/V/D or changes in bowel or bladder habits. PMH Acute toxic encephalopathy due to alcohol intoxication requiring airway protection s/p intubation and mechanical ventilation [facility] 10/20 to 10/21/18. Right Elbow / wrist pain/bone spurs right knee pain history of gout Suicide Ideation/Attempt Hypertension History of alcohol use. Erectile dysfunction. PE: GEN: 58yoM, appears stated age. Well-nourished, well developed. No acute distress. Alert and oriented x 3. Pleasant, interactive. HEENT: Normocephalic, atraumatic. Pupils are equal, round, and reactive to light. Extraocular movements are intact. No nystagmus appreciated. Sclera are nonicteric. Conjunctiva without injection. Nose midline. Nasal turbinates without bogginess. CHEST: Regular rate and rhythm, +S1, +S2 LUNGS: Clear to auscultation bilaterally. ABD: Round, soft, non-tender, non-distended. +Bowel sounds throughout. EXT: No lower extremity edema appreciated. Decreasing TTP around the Rt elbow,decreased erythema and edema at the area of the olecranon bursa. SKIN: [place], dry, warm. No rashes. NEURO: No focal deficits appreciated. EKG 10/20/18 SINUS TACHYCARDIA WITH SHORT [place] INTERVAL NONSPECIFIC T-WAVE ABNORMALITY ABNORMAL RHYTHM ECG INCREASED RATE 10/04/18 Electronically Signed On 10-20-2018 13:46:21 EST by Kamille Aguiar A&P: 58yoM admitted to [facility] for depressive disorder Psych. Plan per Psychiatry. EKG on file. Follow up with PCP on discharge. Substance use. Management per psychiatry. Continue with MVI, Thiamine, and Folic Acid supplementation. Right Elbow /wrist pain/bone spurs. Orthopedics evaluated 10/23/18 and felt this was related to ulnar nerve contusion vs Olecranon bursitis. XR and CT reviewed by Orthopedics. Very minimal degenerative changes in the wrist and elbow joints. No fractures, no dislocations. ortho was consulted Recommended monitor ESR and CRP. No indication for any splint or cast. Recommended continuing to work on wrist and elbow range of motion. Outpt F/U and plan for EMG. Pt is reporting that this continues to improve. right knee pain Gabapentin 300mg TID. Tylenol as needed. history of gout on colchicine prn Allopurinol 100 mg daily. Hypertension. Metoprolol 50 mg BID, lisinopril 5 mg BID, norvasc 10 mg daily . monitor VS, I&O, 24H, Fishbone Vital Signs/I&O Vital Signs Date Time Temp Pulse Resp B/P (MAP) Pulse Ox O2 Delivery O2 Flow Rate FiO2 10/28/18 08:09 127/77 10/28/18 08:08 60 10/28/18 06:36 97.1 16 10/27/18 06:17 Room Air 10/25/18 08:27 98.0 Laboratory Data 24H LABS Laboratory Tests 2 10/28/18 06:59: Nucleated Red Blood Cells % (auto) 0.0, Erythrocyte Sedimentation Rate 28H, Anion Gap 7L, Glomerular Filtration Rate > 60.0, Blood Urea Nitrogen 16, Creatinine 0.78, Sodium Level 139, Potassium Level 4.8, Chloride Level 102, Carbon Dioxide Level 30, Calcium Level 9.5, C-Reactive Protein, Quantitative 1.14H CBC/BMP Laboratory Tests 10/28/18 06:59 Red Blood Count 4.37, Mean Corpuscular Volume 100.0 H, Mean Corpuscular Hemoglobin 33.0, Mean Corpuscular Hemoglobin Concent 33.0, Red Cell Distribution Width 12.0, Calcium Level 9.5 Lali Artis Oct 28, 2018 11:35
--- NOTE | 2018-10-28 13:12 | MHIPNPDOC ---
[facility] Progress Note Progress Note DATE OF SERVICE: 10/28/18 HISTORY: As per Dr. Barrett: "He is 58 years old and has a partner. He has been on a couple of occasions, has two daughters, both of whom live in the area, he is close with them. He is admitted to the inpatient psychiatry unit after he had come to the hospital a few days ago, had been drinking, and had felt suicidal. Was quite intoxicated, developed encephalopathy, delirium, was intubated, r evived, extubated, an afterwards I saw him on the medical floor, please refer to my consultation summary of 10/21/2018 (not 2018 as stated on the note). The consultation note includes the circumstances of the patient's hospitalization, background history, medical history. Has a long history of being dependent on alcohol, was in fact seen here on [place] by psychiatry, and at that time it was decided that he followup as an [facility]. He attended it and was given recommendations to see various facilities, including for alcohol dependence in this area. It should be noted that he says that he remembered seeing me before, was not quite sure when, thought it might have been over rather than 4 days ago. He says that his partner has visited and they are getting along, want to work things out, says plans to spend lubin, from next winter, in [place]. He has been visited by his mother, says the visit went well." VITAL SIGNS: See below. NEW TEST RESULTS: See below CURRENT MEDICATIONS: See below. MENTAL STATUS EXAMINATION: Patient is a 58-year old male, who is ALERT, DRESSED IN PERSONAL CLOTHES, COOPERATIVE, WITH GOOD EYE CONTACT. Speech: Is NORMAL IN RATE, TONE AND VOLUME. Language skills are GOOD. Thought processes including: linear, coherent Thought content: ANXIOUS THOUGHTS ABOUT BEING DISCHARGED. Description of abnormal or psychotic thoughts: Denies AV hallucinations, denies thought delusions, denies SI/HI Judgment: Poor Insight: Poor Orientation: x 3 Recent and remote memory: good Attention span and concentration: good Language: normal Fund of knowledge: average Mood: depressed/anxious. Affect: congruent with mood, sad, depressed and anxious DIAGNOSES: Other specified depressive disorder. Alcohol use disorder. Consider alcohol induced depressive disorder. The possibility of major depressive disorder as comorbid to alcohol use is also to be considered. ASSESSMENT: Patient is anxious about being discharged, I tell him he was just started on Revia and I need to observe his reactions to the medications, I explain how it works, what we can expect and side effects. He still says he wants to leave. He is not suicidal, not homicidal or psychotic. He denies having cravings but I think he wants to leave because he has cravings. will talk to D/C emergency planner about f/u appointments in case he becomes more demanding about discharge. MANAGEMENT PLAN: Will continue with the current treatment plan, with Revia 50 mgs PO TIME SPENT: 25 minutes. Vital Signs Vital Signs Date Time Temp Pulse Resp B/P (MAP) Pulse Ox O2 Delivery O2 Flow Rate FiO2 10/28/18 08:09 127/77 10/28/18 08:08 60 10/28/18 06:36 97.1 16 10/27/18 06:17 Room Air 10/25/18 08:27 98.0 Laboratory Data 24H Labs Laboratory Tests 2 10/28/18 06:59: Nucleated Red Blood Cells % (auto) 0.0, Erythrocyte Sedimentation Rate 28H, Anion Gap 7L, Glomerular Filtration Rate > 60.0, Blood Urea Nitrogen 16, Creatinine 0.78, Sodium Level 139, Potassium Level 4.8, Chloride Level 102, Carbon Dioxide Level 30, Calcium Level 9.5, C-Reactive Protein, Quantitative 1.1 4H CBC/BMP Laboratory Tests 10/28/18 06:59 Red Blood Count 4.37, Mean Corpuscular Volume 100.0 H, Mean Corpuscular Hemoglobin 33.0, Mean Corpuscular Hemoglobin Concent 33.0, Red Cell Distribution Width 12.0, Calcium Level 9.5 Current Medications Current Medications Acetaminophen (Tylenol Tab) 650 mg Q6HP PRN PO HEADACHE or DISCOMFORT Last administered on 10/27/18at 21:42; Start 10/24/18 at 13:30 Al Hydrox/Mg Hydrox/Simethicone (Mylanta) 30 ml Q4HP PRN PO HEARTBURN/INDIGESTION; Start 10/24/18 at 13:30 Allopurinol (Zyloprim) 100 mg DAILY PO Last administered on 10/28/18at 08:08; Start 10/25/18 at 09:00 Amlodipine Besylate (Norvasc) 10 mg DAILY PO Last administered on 10/28/18 08:08; Start 10/25/18 at 09:00 Colchicine (Colcrys) 0.6 mg TIDP PRN PO GOUT PAIN; Start 10/24/18 at 17:15 Famotidine (Pepcid) 20 mg BID PO Last administered on 10/28/18 08:09; Start 10/24/18 at 21:00 Fluoxetine HCl (PROzac) 10 mg DAILY PO Last administered on 10/27/18at 08:57; Start 10/26/18 at 12:30; Stop 10/27/18 at 14:23; Status DC Fluoxetine HCl (PROzac) 20 mg DAILY PO Last administered on 10/28/18 08:09; Start 10/28/18 at 09:00 Folic Acid (Folic Acid) 1 mg DAILY PO Last administered on 10/28/18 08:08; Start 10/25/18 at 09:00 Gabapentin (Neurontin) 300 mg TID PO Last administered on 10/28/18 08:08; Start 10/24/18 at 21:00 Lisinopril (Prinivil) 5 mg BID PO Last administered on 10/28/18 08:09; Start 10/24/18 at 21:00 Magnesium Hydroxide (Milk Of Magnesia) 30 ml DAILYPRN PRN PO CONSTIPATION; Start 10/24/18 at 13:30 Metoprolol Tartrate (Lopressor) 50 mg BID PO Last administered on 10/28/18 08:08; Start 10/24/18 at 21:00 Multivitamins (Theragram-M) 1 tab DAILY PO Last administered on 10/28/18 08:09; Start 10/25/18 at 09:00 Naltrexone HCl (Revia) 50 mg QAM PO Last administered on 10/28/18 08:09; Start 10/28/18 at 09:00 Oxazepam (Serax) 30 mg Q6HP PRN PO SEE COMMENTS; Start 10/24/18 at 17:45 Thiamine HCl (Thiamine HCl) 100 mg DAILY PO Last administered on 10/28/18 08:08; Start 10/25/18 at 09:00 Trazodone HCl (Desyrel) 50 mg QHSP PRN PO INSOMNIA Last administered on 10/26/18at 22:29; Start 10/24/18 at 13:30 Vitamin D (Vitamin D) 1,000 units DAILY PO Last administered on 10/28/18at 08:09; Start 10/25/18 at 09:00 Allergies Coded Allergies: No Known Drug Allergy (Verified Allergy, Unknown, 08/26/18) PAUL KELLER MD Oct 28, 2018 12:49
[2018-10-28] MEDS ORDERED: FLUO20CA19 PO (14:21)
[2018-10-28] MEDS ORDERED: AMLO10TA PO (15:30)
[2018-10-28] MEDS ORDERED: LOPR1TAB6 PO (15:31)
[2018-10-28] MEDS ORDERED: NALT50TA4 PO (15:32)
--- NOTE | 2018-11-17 21:15 | MHDSPDOC ---
[facility] Discharge Summary Discharge Summary DATE OF ADMISSION: Oct 24, 2018 at 14:05 DATE OF DISCHARGE: Oct 28, 2018 at 16:10 DISCHARGE DIAGNOSES: Other specified depressive disorder. Alcohol use disorder. Consider alcohol induced depressive disorder. The possibility of major depressive disorder as comorbid to alcohol use is also to be considered. REASON FOR ADMISSION: As per Dr. Barrett: "He is 58 years old and has a partner. He has been on a couple of occasions, has two daughters, both of whom live in the area, he is close with them. He is admitted to the inpatient psychiatry unit after he had come to the hospital a few days ago, had been drinking, and had felt suicidal. Was quite intoxicated, developed encephalopathy, delirium, was intubated, revived, extubated, an afterwards I saw him on the medical floor, please refer to my consultation summary of 10/21/2018 (not 2018 as stated on the note). The consultation note includes the circumstances of the patient's hospitalization, background history, medical history. Has a long history of being dependent on alcohol, was in fact seen here on by psychiatry, and at that time it was decided that he followup as an outpatient at the clinic at the [facility]. He attended it and was given recommendations to see various facilities, including for alcohol dependence in this area. It should be noted that he says that he remembered seeing me before, was not quite sure when, thought it might have been over rather than 4 days ago. He says that his partner has visited and they are getting along, want to work things out, says plans to spend lubin, from next winter, in [place]. He has been visited by his mother, says the visit went well." CONSULTANTS INVOLVED: None TREATMENT AND PROGRESS ON THE UNIT : This patient has been seen previously at the emergency room for exactly the same reasons. He was intoxicated while at the ED, his significant other wanted him to be admitted and he was transferred to the [facility] in [place]. He didn't want to be hospitalized at that time but his family was worried about him. He said he was not going to drink once again. This was approximately 2 months before these last hospitalization where he had a similar presentation and he had to be admitted to the medical floor for alcohol intoxication, where he had to be intubated and was encephalopathic. He was extubated before he was transferred to [facility] for depression. Patient has reasons to be depressed. He has lost several family members and friends during the last year and this affected him very much. He turned to alcohol to sooth those feelings and as a consequence he had problems with his job. He has been ill and his family has been supportive, they want him to feel better. However he wants to be discharged, he says he has no cravings for alcohol but he is extremely anxious and he might still have some cravings despite being on ReVia. I have explained to him that he cannot drink alcohol if he is using ReVia. The patient tells me that he is not suicidal, not homicidal and not psychotic and he wants to be discharged. HOSPITAL COURSE: As above DISCHARGE ASSESSMENT: Patient was not homicidal, not suicidal and not psychotic at the time of his discharge MENTAL STATUS EXAMINATION ON DISCHARGE: Patient is a 58-year old male, who is ALERT, DRESSED IN PERSONAL CLOTHES, COOPERATIVE, WITH GOOD EYE CONTACT. Speech: Is NORMAL IN RATE, TONE AND VOLUME. Language skills are GOOD. Thought processes including: linear, coherent Thought content: ANXIOUS THOUGHTS ABOUT BEING DISCHARGED. Description of abnormal or psychotic thoughts: Denies AV hallucinations, denies thought delusions, denies SI/HI Judgment: Poor Insight: Poor Orientation: x 3 Recent and remote memory: good Attention span and concentration: good Language: normal Fund of knowledge: average Mood: depressed/anxious. Affect: congruent with mood, sad, depressed and anxious DIAGNOSES: Other specified depressive disorder. Alcohol use disorder. Consider alcohol induced depressive disorder. The possibility of major depressive disorder as comorbid to alcohol use is also to be considered. MEDICATIONS ON DISCHARGE: Scheduled Allopurinol (Allopurinol) 100 Mg Tab, 100 MG PO DAILY, (Reported) Amlodipine Besylate (Amlodipine Besylate) 10 Mg Tab, 10 MG PO DAILY, (Reported) Amlodipine Besylate (Norvasc) 10 Mg Tab, 1 TAB PO DAILY for hypertension for 7 Days, #7 Cholecalciferol (D 1000) 1,000 Unit Tab, 1,000 UNITS PO DAILY, (Reported) Fluoxetine Hcl (Fluoxetine HCl) 20 Mg Cap, 20 MG PO DAILY for depression, #7 Folic Acid (Folic Acid) 1 Mg Tab, 1 MG PO DAILY, (Reported) Gabapentin (Gabapentin) 300 Mg Cap, 300 MG PO TID, (Reported) Lisinopril (Lisinopril) 5 Mg Tab, 5 MG PO BID, (Reported) Metoprolol Tartrate (Lopressor) 50 Mg Tab, 50 MG PO BID for hypertension, #14 Multivitamins *[facility] STOCKED* (Thera M Plus *[facility] STOCKED*) 1 Tab Tab, 1 TAB PO DAILY, (Reported) Naltrexone HCl (Naltrexone HCl) 50 Mg Tab, 50 MG PO QAM for alcohol abuse, #7 Ranitidine HCl (Ranitidine [address]) 150 Mg Tab, 1 TAB PO BID, (Reported) Thiamine Hcl (Thiamine Hcl) 100 Mg Tab, 100 MG PO DAILY, (Reported) Scheduled PRN Colchicine (Colchicine) 0.6 Mg Tab, 0.6 MG PO TID PRN for GOUT PAIN, (Reported) Sildenafil Citrate (Viagra) 100 Mg Tab, 100 MG PO DAILYPRN PRN for erectile dysfunction, (Reported) 1 hour before sexual activity PLAN/FOLLOWUP ARRANGEMENTS: Follow Up Care Education Label * Medical * Medical Follow Up [facility]: [facility] * Established With This Provider Yes * Date Nov 20, 2018 * Time 11:00 * Follow Up Care Education Label * Mental Health Appt 1 * Mental Health [facility] * Established With This Provider Yes * Therapist JENNIFER RODRIGUEZ LCSW * Date Oct 31, 2018 * Time 13:00 * Follow Up Care Education Label * Mental Health Appt 2 * Mental Health [facility] * Therapist DR. OLVERA * Date Nov 05, 2018 * Time 14:30 * Follow Up Care Education Label * Mental Health Appt 3 * Mental Health [facility] * Established With This Provider Yes * Therapist JENNIFER RODRIGUEZ LCSW * Date Nov 25, 2018 * Time 14:30 * Follow Up Care Education Label * Chemical Dependency Appt1 * Chemical Dependency [facility] * Established With This Provider No * Address of Clinic or Practice [address] [place] [address] * * Additional information Walk in hours from Saturday through Saturday from 8am-4pm Follow Up Care Education Label * Chemical Dependency Appt2 * Chemical Dependency [facility] * Address of Clinic or Practice [address] [place] [address] * Additional information Walk in hours from Saturday through Saturday from 730am-1230pm The amount of time spent in the coordination of care for this patient was approximately 30 minutes. Medications Scheduled Allopurinol (Allopurinol) 100 Mg Tab, 100 MG PO DAILY, (Reported) Amlodipine Besylate (Amlodipine Besylate) 10 Mg Tab, 10 MG PO DAILY, (Reported) Amlodipine Besylate (Norvasc) 10 Mg Tab, 1 TAB PO DAILY for hypertension for 7 Days, #7 Cholecalciferol (D 1000) 1,000 Unit Tab, 1,000 UNITS PO DAILY, (Reported) Fluoxetine Hcl (Fluoxetine HCl) 20 Mg Cap, 20 MG PO DAILY for depression, #7 Folic Acid (Folic Acid) 1 Mg Tab, 1 MG PO DAILY, (Reported) Gabapentin (Gabapentin) 300 Mg Cap, 300 MG PO TID, (Reported) Lisinopril (Lisinopril) 5 Mg Tab, 5 MG PO BID, (Reported) Metoprolol Tartrate (Lopressor) 50 Mg Tab, 50 MG PO BID for hypertension, #14 Multivitamins *[facility] STOCKED* (Thera M Plus *[facility] STOCKED*) 1 Tab Tab, 1 TAB PO DAILY, (Reported) Naltrexone HCl (Naltrexone HCl) 50 Mg Tab, 50 MG PO QAM for alcohol abuse, #7 Ranitidine HCl (Ranitidine [address]) 150 Mg Tab, 1 TAB PO BID, (Reported) Thiamine Hcl (Thiamine Hcl) 100 Mg Tab, 100 MG PO DAILY, (Reported) Scheduled PRN Colchicine (Colchicine) 0.6 Mg Tab, 0.6 MG PO TID PRN for GOUT PAIN, (Reported) Sildenafil Citrate (Viagra) 100 Mg Tab, 100 MG PO DAILYPRN PRN for erectile dysfunction, (Reported) 1 hour before sexual activity Allergies Coded Allergies: No Known Drug Allergy (Verified Allergy, Unknown, 08/26/18) PAUL KELLER MD Nov 17, 2018 21:03
== END 2018-10-28 16:10 | disposition home or self-care (01) | DRG 885 ==
LOC: M PSY 14:05
PROVIDERS: ADMIT Psychiatry & Neurology Psychiatry; ATTEND Psychiatry & Neurology Psychiatry
DX: F32.89 Other specified depressive episodes (principal); F10.24 Alcohol dependence with alcohol-induced mood disorder; M10.9 Gout, unspecified; Z91.5 Personal history of self-harm; N52.9 Male erectile dysfunction, unspecified; I10 Essential (primary) hypertension; Z79.899 Other long term (current) drug therapy; M25.521 Pain in right elbow; M25.531 Pain in right wrist

== ENCOUNTER 2019-02-04 12:19 | Inpatient (IN) | payer OTHER ==
[~2019-02-04] VITALS: Ht 182.9 cm; Wt 97.2 kg
[~2019-02-04 12:19] MED LIST changes: +AMLO10TA PO; -D 101TAB PO; +FLUO20CA19 PO; +FOLI0.4T2 PO; +LOPR1TAB6 PO; -SM F PO; +VITA-144 PO
[2019-02-04] MEDS ORDERED: PRIL20TA2 PO (12:33)
[2019-02-04] MEDS ORDERED: FLUO20CA19 PO (12:33)
[2019-02-04] MEDS ORDERED: NS 1,000 ML IV ONE (13:15)
[2019-02-04 13:35] LABS: VENOUS BASE EXCESS 2.8 (-2.0-2.0); VENOUS HCO3 29.3 MEQ/L (23.0-27.0); VENOUS O2 SATURATION 89.5 % (60.0-80.0); VENOUS PARTIAL PRESSURE CO2 50.7 mmHg (38.0-50.0); VENOUS PARTIAL PRESSURE O2 65.4 mmHg (30.0-50.0); VENOUS PH 7.379 UNITS (7.330-7.430); VENOUS STANDARD HCO3 26.7 MEQ/L; VENOUS TOTAL CO2 30.8 MEQ/L (24.0-28.0)
[2019-02-04 13:46] LABS: BASO # 0.2 10^3/uL (0.0-0.2); BASO % 1.1 % (0.0-1.0); EOS # 0.1 10^3/uL (0.0-0.50); EOS % 0.7 % (0.0-3.0); HEMATOCRIT 49.4 % (42.0-52.0); HEMOGLOBIN 16.9 g/dl (13.5-17.5); LYMPH # 4.3 10^3/uL (1.5-4.5); LYMPH % 28.5 % (24.0-44.0); MEAN CORPUSCULAR HEMOGLOBIN 32.2 pg (27.0-33.0); MEAN CORPUSCULAR HGB CONC 34.2 g/dl (32.0-36.5); MEAN CORPUSCULAR VOLUME 94.1 fl (80.0-96.0); MONO # 0.6 10^3/uL (0.0-0.8); MONO % 4.2 % (0.0-5.0); NEUTROPHILS # 9.7 10^3/uL (1.8-7.7); NEUTROPHILS % 65.1 % (36.0-66.0); PLATELET COUNT, AUTOMATED 315 10^3/uL (150-450); RED BLOOD COUNT 5.25 10^6/uL (4.30-6.10); WHITE BLOOD COUNT 14.9 10^3/uL (4.0-10.0)
[2019-02-04 14:12] LABS: OSMOLALITY SERUM 420 MOSM/KG (275-295)
[2019-02-04 14:40] LABS: ACETAMINOPHEN LEVEL < 2.0 UG/ML (10.0-30.0); ALBUMIN 3.6 GM/DL (3.2-5.2); ALT/SGPT 31 U/L (12-78); BILIRUBIN,DIRECT < 0.1 MG/DL (0.0-0.2); BILIRUBIN,TOTAL 0.2 MG/DL (0.2-1.0); BLOOD UREA NITROGEN 12 MG/DL (7-18); CALCIUM LEVEL 8.5 MG/DL (8.5-10.1); CARBON DIOXIDE LEVEL 29 MEQ/L (21-32); CHLORIDE LEVEL 101 MEQ/L (98-107); CPK CREATINE PHOSPHOKINASE 114 U/L (39-308); CREATININE FOR GFR 0.88 MG/DL (0.70-1.30); GLOMERULAR FILTRATION RATE > 60.0 (>56); GLUCOSE, FASTING 98 MG/DL (70-100); POTASSIUM SERUM 4.1 MEQ/L (3.5-5.1); SALICYLATE LEVEL < 1.7 MG/DL (5.0-30.0); SODIUM LEVEL 140 MEQ/L (136-145); TOTAL PROTEIN 8.1 GM/DL (6.4-8.2)
--- NOTE | 2019-02-04 14:50 | REP ---
PORTABLE CHEST X-RAY: SINGLE VIEW. HISTORY: Drug overdose. COMPARISON STUDY: October 21, 2018 FINDINGS: EKG monitoring electrodes overlie the chest. The lungs are well inflated and free of infiltrate. Right hemidiaphragm is slightly elevated. The pleural angles are sharp. Heart size is normal. Pulmonary vasculature is not increased. No significant bony abnormality is seen. IMPRESSION: No acute disease seen. Electronically Signed by Young Houston MD 02/04/2019 04:03 P
[2019-02-04] MEDS ORDERED: HALOPERIDOL 5 MG/ML VIAL (J1630) IV ONE (15:15)
--- NOTE | 2019-02-04 22:19 | ECGEPIP ---
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
[2019-02-04] MEDS ORDERED: AMMONIA AROMATIC INHALANT (FLOOR STOCK) As Ordered ONE (23:41)
[2019-02-05 00:06] LABS: AMPHETAMINES LEVEL URINE NEGATIVE (NEGATIVE); BARBITURATES URINE NEGATIVE (NEGATIVE); BENZODIAZEPINES URINE NEGATIVE (NEGATIVE); CANNABINOIDS URINE NEGATIVE (NEGATIVE); COCAINE METABOLITE URINE NEGATIVE (NEGATIVE); METHADONE URINE NEGATIVE (NEGATIVE); OPIATES URINE NEGATIVE (NEGATIVE); PHENCYCLIDINE URINE NEGATIVE (NEGATIVE)
[2019-02-05] MEDS ORDERED: NICOTINE 21MG/24HR 1 EA TRANSDERMAL TD SCH (09:00)
[2019-02-05] MEDS ORDERED: LISI-538 PO (11:39)
[2019-02-05] MEDS ORDERED: MOM 30ML SUSPENSION UDC PO PRN (13:45)
[2019-02-05] MEDS ORDERED: ACETAMINOPHEN TAB 650MG DOSE (2X325MG) PO PRN (13:45)
[2019-02-05] MEDS ORDERED: traZODone 50 MG TAB PO PRN (13:45)
[2019-02-05] MEDS ORDERED: MAALOX 30 ML SUSP *UDC PO PRN (13:45)
[2019-02-05] MEDS ORDERED: LISINOPRIL 10 MG TAB PO ONE (14:15)
[2019-02-05] MEDS: LORazepam 2 MG TAB PO PRN (14:16)
[2019-02-05] MEDS: FOLIC ACID 1 MG TAB PO SCH (16:12)
[2019-02-05] MEDS: THIAMINE 100 MG TAB PO SCH (16:12)
[2019-02-05] MEDS: MULTIVITAMINS/MINERALS THERAP 1 TAB PO SCH (16:12)
[2019-02-05 16:54] VITALS: BP 142/90
[2019-02-05 16:56] VITALS: BP 146/93
--- NOTE | 2019-02-05 23:00 | HPEPDOC ---
General Date of Admission Feb 05, 2019 at 13:34 Chief Complaint The patient is a 58-year-old male admitted with a reason for visit of Unspecified Depression. Source: Patient History of Present Illness 58 y/o M with h/o alcohol abuse was admitted to inpatient psychiatry unit for de pression. Hospitalist service was consulted for evaluation and medical management. Pt was seen and examined at bedside at inpatient psychiatry unit. Pt stated that he was drinking heavily over the weekend and had multiple bottles of Vodka and gin. After that he started on have nausea and vomiting that has resolved. Pt came to hospital because he was feeling depressed. At the time of examination pt stated that he is feeling fine and denied any acute suicidal or homicidal ideations. PMH- alcohol abuse, gout, HTN, erectile dysfunction PSxH- None Allergies- NKDA Home meds- reviewed, please refer to permanent medical records. 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 FH- reviewed non contributory Home Medications Scheduled Allopurinol (Allopurinol) 100 Mg Tab, 100 MG PO DAILY for Gout, (Reported) Cholecalciferol (Vitamin D3) (Vitamin D3) 1,000 Unit Tab, 2,000 UNITS PO DAILY for supplement, (Reported) Fluoxetine Hcl (Fluoxetine HCl) 20 Mg Capsule, 20 MG PO DAILY for depression, (Reported) Folic Acid (Folic Acid) 1 Mg Tab, 1 MG PO DAILY for supplement, (Reported) Lisinopril (Lisinopril) 20 Mg Tablet, 10 MG PO DAILY for blood pressure, (Reported) Multivitamins (Thera M Plus Tablet) 1 Tab Tab, 1 TAB PO DAILY for supplement, (Reported) Ranitidine HCl (Ranitidine HCl) 150 Mg Tab, 1 TAB PO BID for heartburn, (Reported) Thiamine Hcl (Vitamin B-1) 100 Mg Tab, 100 MG PO DAILY for supplement, (Reported) Scheduled PRN Gabapentin (Gabapentin) 300 Mg Cap, 300 MG PO DAILY PRN for ANXIETY, (Reported) PER [facility] RECORDS Sildenafil Citrate (Viagra) 100 Mg Tab, 100 MG PO ASDIRECTED PRN for ERECTILE DYSFUNCTION, (Reported) Allergies Coded Allergies: No Known Drug Allergies (Verified Allergy, Unknown, 02/04/19) Social History * Smoker: Denies Alcohol: heavy A-FIB/CHADSVASC A-FIB History Current/History of A-Fib/PAF?: No Current Oral Anticoagulant The: No Review of Systems Other systems 10 points review of system was performed and it was negative except as per HPI Physical Examination General Exam: Positive: Alert, Cooperative, No Acute Distress Eye Exam: Positive: PERRLA ENT Exam: Positive: Atraumatic, Mucous membr. moist/pink Neck Exam: Positive: Supple Chest Exam: Positive: Clear to auscultation, Normal air movement Heart Exam: Positive: Rate Normal Abdomen Exam: Positive: Normal bowel sounds, Soft Extremity Exam: Positive: Normal pulses Skin Exam: Positive: Nl turgor and temperature Neuro Exam: Positive: Normal Gait, Normal Speech, Cranial Nerves 3-12 NL Psych Exam: Positive: Mood NL Vital Signs Vital Signs Date Time Temp Pulse Resp B/P (MAP) Pulse Ox O2 Delivery O2 Flow Rate FiO2 02/05/19 16:56 98.9 97 18 146/93 (110) 96 02/05/19 05:37 Room Air Laboratory Data Labs 24H Laboratory Tests 2 02/04/19 23:20: Urine Color YELLOW, Urine Appearance CLEAR, Urine pH 5.0, Urine Specific [place] 1.015, Urine Protein NEGATIVE, Urine Glucose (UA) NEGATIVE, Urine Ketones TRACEH, Urine Blood NEGATIVE, Urine Nitrite NEGATIVE, Urine Bilirubin NEGATIVE, Urine Urobilinogen 0.2, Urine Leukocyte Esterase NEGATIVE, Urine WBC (Auto) 0, Urine RBC (Auto) 1, Urine Hyaline Casts (Auto) 2, Urine Bacteria (Auto) NEGA TIVE, Urine Squamous Epithelial Cells 0, Urine Mucus (Auto) SMALL, Urine Sperm (Auto) , Urine Amphetamines Screen NEGATIVE, Urine Benzodiazepines Screen NEGATIVE, Urine Opiates Screen NEGATIVE, Urine Methadone Screen NEGATIVE, Urine Barbiturates Screen NEGATIVE, Urine Phencyclidine Screen NEGATIVE, Urine Cocaine Metabolite Screen NEGATIVE, Urine Cannabinoids Screen NEGATIVE Assessment/Plan 58 y/o M with h/o alcohol abuse was admitted for depression. Labs and imaging studies reviewed. Impression- depression Thank for letting us participate in taking care of this patient. Hospitalist service will sign off, please reconsult prn. Problems (1) Depression Status: Chronic Problem Text: home meds further management as per primary psychiatry team (2) Alcohol abuse Status: Chronic Problem Text: pt was counselled about alcohol abstinence will continue thiamine, folic acid, multivitamin. (3) Leucocytosis Problem Text: on review of prior labs it was found out that pt had intermittent episode of leucocytosis. there is no sign and symptom suggestive of active infection. UA negative chest x ray- no acute pathology this episode of leucocytosis might be reactive related to recent episode of nausea/vomiting Plan f/u repeat labs If pt continues to have elevated WBC- please refer pt to o/p hematology (4) HTN (hypertension) Status: Chronic Problem Text: home meds (5) Gout Status: Chronic Problem Text: home meds Plan / VTE VTE Prophylaxis Ordered?: No VTE Exclusion Mechanical Proph: Low Risk for VTE GIL AREVALO MD Feb 05, 2019 23:00
[2019-02-05] MEDS ORDERED: GABAPENTIN 300 MG CAP PO PRN (23:30)
[2019-02-06 06:21] VITALS: BP 158/87
[2019-02-06 07:47] LABS: BASO # 0.1 10^3/uL (0.0-0.2); BASO % 0.8 % (0.0-1.0); EOS # 0.1 10^3/uL (0.0-0.50); EOS % 1.4 % (0.0-3.0); HEMATOCRIT 46.3 % (42.0-52.0); HEMOGLOBIN 15.8 g/dl (13.5-17.5); LYMPH # 1.9 10^3/uL (1.5-4.5); LYMPH % 24.2 % (24.0-44.0); MEAN CORPUSCULAR HGB CONC 34.1 g/dl (32.0-36.5); MEAN CORPUSCULAR VOLUME 93.9 fl (80.0-96.0); MONO # 0.7 10^3/uL (0.0-0.8); MONO % 9.2 % (0.0-5.0); NEUTROPHILS # 4.9 10^3/uL (1.8-7.7); NEUTROPHILS % 64.1 % (36.0-66.0); PLATELET COUNT, AUTOMATED 223 10^3/uL (150-450); RED BLOOD COUNT 4.93 10^6/uL (4.30-6.10); WHITE BLOOD COUNT 7.7 10^3/uL (4.0-10.0)
[2019-02-06 08:07] VITALS: BP 174/103
[2019-02-06] MEDS: THIAMINE 100 MG TAB PO SCH ×3 (08:17→21:12)
[2019-02-06] MEDS: FAMOTIDINE 20 MG TAB PO SCH ×3 (08:17→21:12)
[2019-02-06] MEDS: LORazepam 2 MG TAB PO PRN (08:22)
[2019-02-06] MEDS: FLUoxetine 20 MG CAP PO SCH (08:22)
[2019-02-06] MEDS: LISINOPRIL 20 MG TAB PO SCH (08:22)
[2019-02-06] MEDS: MULTIVITAMINS/MINERALS THERAP 1 TAB PO SCH (08:23)
[2019-02-06] MEDS: VITAMIN D 1,000 INTERNATIONAL UNITS TABLET PO SCH (08:23)
[2019-02-06] MEDS: FOLIC ACID 1 MG TAB PO SCH (08:23)
[2019-02-06] MEDS: ALLOPURINOL 100 MG TAB PO SCH (08:23)
[2019-02-06] MEDS ORDERED: FOLIC ACID 1 MG TAB PO SCH (09:00)
[2019-02-06] MEDS ORDERED: MULTIVITAMINS/MINERALS THERAP 1 TAB PO SCH (09:00)
[2019-02-06 09:39] VITALS: BP 138/79
--- NOTE | 2019-02-06 13:33 | MHHPEPDOC ---
General Date Of Admission: Feb 05, 2019 Legal Status: 9.39 Chief Complaint "I feel off the wagon" History of Present Illness HISTORY OF THE PRESENT ILLNESS: Patient is a 58 -year-old , male, who has a past psychiatric history of depression and alcohol use disorder. He presents with depression and does not remember making suicidal statements. BAL was 0.47 02/04/19. Says his last vivitrol shot was due this past Saturday because he was drinking (agrees with Ed report) and "fell off the wagon". Says he was drinking since before dinner at his mother's because he had been home alone and "it was the holiday" and "I finished an oak dresser", family was upset with him when he showed up to dinner. When he returned home finished 1 L of vodka and 1 L gin. States he was sober for 5 weeks prior to this episode. Reports he was found at home by his son in law passed out in his own vomit and brought him to the ED. Reports he sees a therapist on [facility] and receives medications through the [facility] on [facility]. Reports he is still with his girlfriend, but only sees her 1 day per week due to her busy job. Says they have plans to visit [place] next winter, she has a place around [place] and he has a pension to cover costs at home. Says lubin make him depressed and he feels less focused, financially strained. Per ED report: "[place] [address] with other family members close by, mother next door, siblings on same property. Despite this, pt notes he is lonely. Spoke with pt's mother who says he has been making a number of suicidal statements over the last week or more. She says pt asked her for his guns the other day. She has them locked up since pt's admission in September 2018 when he overdosed. 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 Pt states he does NOT want to be sent to the [facility] for admission. He is aware that he will be responsible for the bill if he remains at [facility] but prefers to remain here. Pt indicates he "hates the [facility] hospital" [facility]." Currently denies SI/HI/AVH/melissa. Agreeable to starting receiving oral naltrexone. 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 Previous Psychiatric Admissions: 1x to [facility] in Oct 2018, 1x [facility] Suicide Attempts: 1x by OD on pills. [facility]. Psychiatric medications: prozac (makes me less nervous, and less negative thinking), naltrexone for alcohol cravings, gabapentin for anxiety Past Medical History Medical Problems HTN, gout, gastric reflux, ED. 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 "Good childhood", parents, when he was 7 y.o. Mother re- 2x. Raised by stepfather since 15 y.o, past away last summer. 4 siblings, 1 brother 3 sisters, patient is the oldest. Abuse/Trauma: Denies Current Living Situation: See [facility]. Education: grade 12. 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 Social Support: Mother, gf Legal: Denies Marital: in early , now with gf. Mental Status Examination General Appearance: disheveled (Has tootoos on forearm), hospital scubs/clothing Build: average Demeanor: withdrawn Eye Contact: avoidant Activity: anxious Behavior: cooperative, loss of interests, anhedonia, withdrawn, status post overdose Speech: clear, spontaneous, reg/rate,rhythm,volume Mood: depressed, anxious Affect: constricted, anxious Thought Process: logical/linear Thought Content (Delusions): none reported Thought Content (Other): none reported Thought Content (Aggressive): none reported Perception (Hallucinations): none reported Perception (Other): none reported Cognition (Impairment of): attention/concentration Cognition(Intelligence Est.): average Oriented: Awake, Alert, Oriented times three Insight: poor Judgment: Poor Psychosis: Denies Diagnoses 1. Major depressive disorder, recurrent, severe 2. Alcohol use disorder Assessment Patient presents with depression after severe intoxication with alcohol, Bal 0.47 on admission. LFTs non-elevated. Agrees to take oral naltrexone 50 mg PO daily until discharge, at which time he can get his next injection (has had 4-5 vivitrol injections in the past). Currently denies SI/HI/AVH/melissa. But according to ED report, from collateral mother reports he has been making suicidal statements over the last weeks. He may be minimizing his symptoms but states depression and anxiety are triggers for his alcohol use. Was counselled regarding alcohol use and states he does not want inpatient rehab. Reports he has never had inpatient rehab. Agrees to start abilify 2.5 mg Po QHS for augmentation of his SSRI. Leukocytosis resolved, repeat CBC showed WBC 7.76, denies F. Ordered QAM lipid panel and hba1c. Problem List Problems: (1) Depression Status: Chronic (2) Alcohol abuse Status: Chronic (3) Leucocytosis (4) HTN (hypertension) Status: Chronic (5) Gout Status: Chronic Initial Treatment Plan 1. Patient was admitted on a [9.39] status. 2. Complete history was obtained. 3. With patients permission, family will be contacted and database will be expanded. 4. Patients medication regimen will be reviewed and changed accordingly. 5. Patient will be provided with protected environment. 6. Patient will be treated with individual, group, and milieu therapies. 7. Patient will receive supportive psych-education. 8. Discharge planning will commence immediately. 9. Outpatient follow-up treatment will be strongly recommended. 10. The initial treatment plan will focus initially on: * Depression/anxiety. * Risk for suicide. * Substance abuse. * continue home medications including prozac 20 mg PO daily for depression and PRN 50 mg trazodone for sleep, started naltrexone 50 mg PO daily for alcohol cravings, started abilify 2.5 mg PO QHS for augmentation of SSRI. * Continue on CIWA for risk of alcohol withdrawal symptoms. ESTIMATED LENGTH OF STAY: 5-7 DAYS. TIME SPENT COUNSELING AND COORDINATING INITIAL CARE: 70 minutes. Vital Signs Vital Signs Date Time Temp Pulse Resp B/P (MAP) Pulse Ox O2 Delivery O2 Flow Rate FiO2 02/06/19 09:39 109 138/79 (98) 02/06/19 06:21 98.6 02/05/19 16:56 18 96 02/05/19 05:37 Room Air Laboratory Data 24H Labs Laboratory Tests 2 02/06/19 07:16: Immature Granulocyte % (Auto) 0.3, White Blood Count 7.7, Red Blood Count 4.93, Hemoglobin 15.8, Hematocrit 46.3, Mean Corpuscular Volume 93.9, Mean Corpuscular Hemoglobin 32.0, Mean Corpuscular Hemoglobin Concent 34.1, Red Cell Distribution Width 12.1, Platelet Count 223, Neutrophils (%) (Auto) 64.1, Lymphocytes (%) (Auto) 24.2, Monocytes (%) (Auto) 9.2H, Eosinophils (%) (Auto) 1.4, Basophils (%) (Auto) 0.8, Neutrophils # (Auto) 4.9, Lymphocytes # (Auto) 1.9, Monocytes # (Auto) 0.7, Eosinophils # (Auto) 0.1, Basophils # (Auto) 0.1, Nucleated Red Blood Cells % (auto) 0.0 CBC/BMP Laboratory Tests 02/06/19 07:16 Red Blood Count 4.93, Mean Corpuscular Volume 93.9, Mean Corpuscular Hemoglobin 32.0, Mean Corpuscular Hemoglobin Concent 34.1, Red Cell Distribution Width 12.1, Neutrophils (%) (Auto) 64.1, Lymphocytes (%) (Auto) 24.2, Monocytes (%) (Auto) 9.2 H, Eosinophils (%) (Auto) 1.4, Basophils (%) (Auto) 0.8, Neutrophils # (Auto) 4.9, Lymphocytes # (Auto) 1.9, Monocytes # (Auto) 0.7, Eosinophils # (Auto) 0.1, Basophils # (Auto) 0.1 Medications Scheduled Allopurinol (Allopurinol) 100 Mg Tab, 100 MG PO DAILY for Gout, (Reported) Cholecalciferol (Vitamin D3) (Vitamin D3) 1,000 Unit Tab, 2,000 UNITS PO DAILY for supplement, (Reported) Fluoxetine Hcl (Fluoxetine HCl) 20 Mg Capsule, 20 MG PO DAILY for depression, (Reported) Folic Acid (Folic Acid) 1 Mg Tab, 1 MG PO DAILY for supplement, (Reported) Lisinopril (Lisinopril) 20 Mg Tablet, 10 MG PO DAILY for blood pressure, (Reported) Multivitamins (Thera M Plus Tablet) 1 Tab Tab, 1 TAB PO DAILY for supplement, (Reported) Ranitidine HCl (Ranitidine HCl) 150 Mg Tab, 1 TAB PO BID for heartburn, (Reported) Thiamine Hcl (Vitamin B-1) 100 Mg Tab, 100 MG PO DAILY for supplement, (Reported) Scheduled PRN Gabapentin (Gabapentin) 300 Mg Cap, 300 MG PO DAILY PRN for ANXIETY, (Reported) PER [facility] CLINIC RECORDS Sildenafil Citrate (Viagra) 100 Mg Tab, 100 MG PO ASDIRECTED PRN for ERECTILE DYSFUNCTION, (Reported) Allergies Coded Allergies: No Known Drug Allergies (Verified Allergy, Unknown, 02/04/19) FRANCISCO YOUNG PGY-1 Feb 06, 2019 13:33
[2019-02-06] MEDS: NALTREXONE 50 MG TAB PO SCH (13:57)
[2019-02-06 14:00] VITALS: BP 133/82
[2019-02-06 18:09] VITALS: BP 120/65
[2019-02-06 21:50] VITALS: BP 120/65
[2019-02-07 06:30] VITALS: BP 144/84
[2019-02-07 09:00] VITALS: BP 144/84
[2019-02-07] MEDS: FOLIC ACID 1 MG TAB PO SCH (09:59)
[2019-02-07] MEDS: MULTIVITAMINS/MINERALS THERAP 1 TAB PO SCH (09:59)
[2019-02-07] MEDS: FLUoxetine 20 MG CAP PO SCH (09:59)
[2019-02-07] MEDS: FAMOTIDINE 20 MG TAB PO SCH ×2 (10:00→21:05)
[2019-02-07] MEDS: LISINOPRIL 20 MG TAB PO SCH (10:00)
[2019-02-07] MEDS: NALTREXONE 50 MG TAB PO SCH (10:00)
[2019-02-07] MEDS: THIAMINE 100 MG TAB PO SCH ×2 (10:00→21:05)
[2019-02-07] MEDS: ALLOPURINOL 100 MG TAB PO SCH (10:00)
[2019-02-07] MEDS: VITAMIN D 1,000 INTERNATIONAL UNITS TABLET PO SCH (10:01)
[2019-02-07] MEDS ORDERED: clonazePAM 0.5 MG TAB PO SCH (13:15)
[2019-02-07 18:22] VITALS: BP 136/74
[2019-02-07 22:21] VITALS: BP 136/74
[2019-02-08 06:55] VITALS: BP 136/74
[2019-02-08 07:00] VITALS: BP 128/77
[2019-02-08] MEDS: THIAMINE 100 MG TAB PO SCH (09:56)
[2019-02-08] MEDS: VITAMIN D 1,000 INTERNATIONAL UNITS TABLET PO SCH (09:56)
[2019-02-08] MEDS: FOLIC ACID 1 MG TAB PO SCH (09:56)
[2019-02-08] MEDS: MULTIVITAMINS/MINERALS THERAP 1 TAB PO SCH (09:56)
[2019-02-08] MEDS: LISINOPRIL 20 MG TAB PO SCH (09:56)
[2019-02-08] MEDS: ALLOPURINOL 100 MG TAB PO SCH (09:56)
[2019-02-08] MEDS: NALTREXONE 50 MG TAB PO SCH (09:56)
[2019-02-08] MEDS: FAMOTIDINE 20 MG TAB PO SCH ×2 (09:56→21:22)
[2019-02-08] MEDS: FLUoxetine 20 MG CAP PO SCH (09:56)
[2019-02-08 18:37] VITALS: BP 124/64
[2019-02-08 22:09] VITALS: BP 124/64
[2019-02-09 06:51] VITALS: BP 121/71
[2019-02-09] MEDS ORDERED: THIAMINE 100 MG TAB PO SCH (09:00)
[2019-02-09] MEDS: VITAMIN D 1,000 INTERNATIONAL UNITS TABLET PO SCH (09:57)
[2019-02-09] MEDS: FAMOTIDINE 20 MG TAB PO SCH ×2 (09:57→21:24)
[2019-02-09] MEDS: FLUoxetine 20 MG CAP PO SCH (09:57)
[2019-02-09] MEDS: MULTIVITAMINS/MINERALS THERAP 1 TAB PO SCH (09:57)
[2019-02-09] MEDS: FOLIC ACID 1 MG TAB PO SCH (09:58)
[2019-02-09] MEDS: ALLOPURINOL 100 MG TAB PO SCH (09:58)
[2019-02-09] MEDS: LISINOPRIL 20 MG TAB PO SCH (09:58)
[2019-02-09] MEDS: NALTREXONE 50 MG TAB PO SCH (09:58)
[2019-02-09] MEDS ORDERED: PILL CRUSHER/CUTTER 1 EACH XX PRN (10:15)
--- NOTE | 2019-02-09 14:37 | MHIPNPDOC ---
[facility] Progress Note Progress Note DATE OF SERVICE: 02/09/19 HISTORY: See HPI. Interval history: States he is feeling better, reports he is sleep and eating "good". 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 Continues to endorse he wants to avoid drinking at all costs and agrees to start acamprosate on top of his naltrexone. He says mood is "getting better" and he denies medication side effec ts. Currently denies SI/HI/AVH/nba. VITAL SIGNS: See below. NEW TEST RESULTS: see below. CURRENT MEDICATIONS: See below. MENTAL STATUS EXAMINATION: General Appearance: disheveled (Has tattoos on forearm), hospital scrubs/cloth ing Build: average Demeanor: less withdrawn Eye Contact: normal Activity: anxious Behavior: cooperative, loss of interests, anhedonia, withdrawn, status post overdose Speech: clear, spontaneous, reg/rate,rhythm,volume Mood: less depressed, less anxious "getting better" Affect: constricted, midly anxious Thought Process: logical/linear Thought Content (Delusions): none reported Thought Content (Other): none reported Thought Content (Aggressive): none reported Perception (Hallucinations): none reported Perception (Other): none reported Cognition (Impairment of): attention/concentration Cognition(Intelligence Est.): average Oriented: Awake, Alert, Oriented times three Insight: poor Judgment: Poor Psychosis: Denies DIAGNOSES: 1. Major depressive disorder, recurrent, severe 2. Alcohol use disorder, severe ASSESSMENT: Continue fluoxetine 20 mg PO daily. Agrees to take acamprosate 666 mg PO TID and naltrexone 50 mg PO daily until receives vivitrol shot, should be monitored for side effects from acamprosate as naltrexone can increase acamprosate level. Mood continues to improve and denies SI/HI. Agreeable to pending discharge tomorrow, social work establishing outpatient follow-up. No common or rare side effects from medications. 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 MANAGEMENT PLAN: see above. TIME SPENT: 30 minutes. Vital Signs Vital Signs Date Time Temp Pulse Resp B/P (MAP) Pulse Ox O2 Delivery O2 Flow Rate FiO2 02/09/19 09:58 113/66 02/09/19 06:51 97.1 56 16 02/05/19 16:56 96 02/05/19 05:37 Room Air Current Medications Current Medications Acamprosate (Campral) 666 mg TID PO ; Start 02/09/19 at 16:00; Status UNV Acetaminophen (Tylenol Tab) 650 mg Q6HP PRN PO HEADACHE or DISCOMFORT; Start 02/05/19 at 13:45 Al Hydrox/Mg Hydrox/Simethicone (Mylanta) 30 ml Q4HP PRN PO HEARTBURN/INDIGESTION; Start 02/05/19 at 13:45 Allopurinol (Zyloprim) 100 mg DAILY PO Last administered on 02/09/19 09:58; Start 02/06/19 at 09:00 Aripiprazole (AbiLIFY) 2.5 mg QHS PO Last administered on 02/08/19at 21:22; Start 02/06/19 at 21:00 Clonazepam (KlonoPIN) 0.5 mg BID@0900,1800 PO ; Start 02/07/19 at 13:15; Stop 02/07/19 at 13:35; Status DC Famotidine (Pepcid) 20 mg BID PO Last administered on 02/09/19at 09:57; Start 02/05/19 at 21:00 Fluoxetine HCl (PROzac) 20 mg DAILY PO Last administered on 02/09/19at 09:57; Start 02/06/19 at 09:00 Folic Acid (Folic Acid) 1 mg DAILY PO Last administered on 02/09/19at 09:58; Start 02/05/19 at 09:00 Folic Acid (Folic Acid) 1 mg DAILY PO ; Start 02/06/19 at 09:00; Status Cancel Gabapentin (Neurontin) 300 mg DAILY PRN PO ANXIETY; Start 02/05/19 at 23:30 Home Med (Med Rec Complete!) ASDIRECTED XX ; Start 02/05/19 at 11:45; Stop 02/05/19 at 11:46; Status DC Lisinopril (Prinivil) 10 mg DAILY PO Last administered on 02/09/19 09:58; Start 02/06/19 at 09:00 Lorazepam (Ativan) 2 mg ASDIRECTED PRN PO SEE PROTOCOL Last administered on 02/06/19at 08:22; Start 02/05/19 at 13:45; Stop 02/09/19 at 13:57; Status DC Magnesium Hydroxide (Milk Of Magnesia) 30 ml DAILYPRN PRN PO CONSTIPATION; Start 02/05/19 at 13:45 Multivitamins (Theragram-M) 1 tab DAILY PO Last administered on 02/09/19at 09:57; Start 02/05/19 at 09:00 Multivitamins (Theragram-M) 1 tab DAILY PO ; Start 02/06/19 at 09:00; Status Cancel Naltrexone HCl (Revia) 50 mg DAILY PO Last administered on 02/09/19at 09:58; Start 02/06/19 at 09:00 Nicotine (Nicoderm Cq 21mg) 1 patch DAILY TD ; Start 02/05/19 at 09:00; Stop 02/05/19 at 17:01; Status DC Thiamine HCl (Thiamine HCl) 100 mg BID PO Last administered on 02/08/19at 09:56; Start 02/05/19 at 15:00; Stop 02/08/19 at 14:59; Status DC Thiamine HCl (Thiamine HCl) 100 mg DAILY PO ; Start 02/09/19 at 09:00; Stop 02/09/19 at 09:00; Status DC Trazodone HCl (Desyrel) 50 mg QHSP PRN PO INSOMNIA Last administered on 02/06/19at 21:11; Start 02/05/19 at 13:45 Vitamin D (Vitamin D) 2,000 units DAILY PO Last administered on 02/09/19at 09: 57; Start 02/06/19 at 09:00 Allergies Coded Allergies: No Known Drug Allergies (Verified Allergy, Unknown, 02/04/19) FRANCISCO YOUNG PGY-1 Feb 09, 2019 14:37
[2019-02-09] MEDS: ACAMPROSATE CALCIUM 333 MG TABLET (CAMPRAL) PO SCH ×2 (16:01→21:25)
[2019-02-09 18:00] VITALS: BP 142/88
[2019-02-10 07:08] VITALS: BP 149/91
[2019-02-10] MEDS: FLUoxetine 20 MG CAP PO SCH (08:14)
[2019-02-10] MEDS: ALLOPURINOL 100 MG TAB PO SCH (08:14)
[2019-02-10] MEDS: ACAMPROSATE CALCIUM 333 MG TABLET (CAMPRAL) PO SCH (08:14)
[2019-02-10 08:15] VITALS: BP 134/84
[2019-02-10] MEDS: FOLIC ACID 1 MG TAB PO SCH (08:15)
[2019-02-10] MEDS: VITAMIN D 1,000 INTERNATIONAL UNITS TABLET PO SCH (08:15)
[2019-02-10] MEDS: MULTIVITAMINS/MINERALS THERAP 1 TAB PO SCH (08:15)
[2019-02-10] MEDS: NALTREXONE 50 MG TAB PO SCH (08:15)
[2019-02-10] MEDS: FAMOTIDINE 20 MG TAB PO SCH (08:15)
[2019-02-10] MEDS: LISINOPRIL 20 MG TAB PO SCH (08:15)
--- NOTE | 2019-02-10 10:19 | MHIPN ---
DATE: 02/08/2019 The patient today states "I am doing good." Again he reiterated the fact that his depression is better and this is because he has stopped drinking and he is going to speak to his provider to see if there is any way that he can get his Vivitrol injection closer together. He states that he slept good. MENTAL STATUS EXAMINATION: The patient is alert and oriented times three. He is pleasant and cooperative. Verbally spontaneous. Eye contact is good. Mood is good. Affect is full range and appropriate. He is not psychotic, suicidal or homicidal. Concentration is fair. Memory intact. Insight and judgment is good. DIAGNOSES: Major depressive disorder, recurrent, severe. Alcohol use disorder. TREATMENT PLAN: At this point we will continue to further evaluate the patient for continued stabilization of his mood and continue resolution for suicidal ideation. RUCHI
[2019-02-10] MEDS ORDERED: TRAZO50TA PO (10:27)
[2019-02-10] MEDS ORDERED: ABIL1TAB11 PO (10:27)
[2019-02-10] MEDS ORDERED: ACAM0.05 PO (10:27)
[2019-02-10] MEDS ORDERED: NALT50TA4 PO (10:27)
--- NOTE | 2019-02-11 08:20 | MHIPN ---
DATE OF SERVICE: 02/07/2019 The patient today states "I am good." He states that once he gets sober he is fine. He is denying any suicidal ideation. He is realizing that he notices that his relapses with alcohol tend to occur a few days before he is due for his next Vivitrol injection. He is denying suicidal ideation. MENTAL STATUS EXAM: He is alert, oriented times three. He is pleasant, verbally spontaneous. Eye contact is good. No formal thought disorder is noted. He says his mood is good. His affect is full range and appropriate. He is not psychotic, not suicidal or homicidal. Concentration is fair. Memory is intact. Insight and judgment is fair. DIAGNOSES: 1. Major depressive disorder recurrent, severe. 2. Alcohol use disorder. TREATMENT PLAN: At this point we will continue to monitor the patient for continued elevation and stabilization of his mood and continued resolution of suicidal ideation.
--- NOTE | 2019-02-12 14:14 | MHDSPDOC ---
[facility] Discharge Summary Discharge Summary DATE OF ADMISSION: Feb 05, 2019 at 13:34 DATE OF DISCHARGE: Feb 10, 2019 DISCHARGE DIAGNOSES: 1. Major depressive disorder, recurrent, severe 2. Alcohol use disorder, severe REASON FOR ADMISSION: Per this insurance writer's H and P 02/05/19: "Patient is a 58 -year-old , male, who has a past psychiatric history of depression and alcohol use disorder. He presents with depression and does not remember making suicidal statements. BAL was 0.47 02/04/19. Says his last vivitrol shot was due this past Saturday because he was drinking (agrees with Ed report) and "fell off the wagon". Says he was drinking since before dinner at his mother's because he had been home alone and "it was the holiday" and "I finished an oak dresser", family was upset with him when he showed up to dinner. When he returned home finished 1 L of vodka and 1 L gin. States he was sober for 5 weeks prior to this episode. Reports he was found at home by his son in law passed out in his own vomit and brought him to the ED. Reports he sees a therapist on [facility] and [facility]. Reports he is still with his girlfriend, but only sees her 1 day per week due to her busy job. Says they have plans to visit [place] next winter, she has a place around [place] and he has a pension to cover costs at home. Says lubin make him depressed and he feels less focused, financially strained. " CONSULTANTS INVOLVED: Medicine for initial workup. TREATMENT AND PROGRESS ON THE UNIT : Patient admitted on a 9.39 involuntary status, CBC showed elevated WBC at 14.4 repeat CBC showed WBC at 7.7, CMP unremarkable, pCO2 was elevated at 50.7, urine toxicology negative, BAL was 0.470. he endorsed he has suicidal thoughts in context of alcohol intoxication, but was no longer suicidal on initial evaluation, endorsed depression related to isolation/seasonal work and anxiety, with alcohol cravings. Reported he was due for Vivitrol shot at the end of January which he missed due to excessive drinking. He was educated regarding alcohol use and agreed to take 50 mg Po oral naltrexone until next vivitrol shot after discharge. he also agreed to start acamprosate 666 mg oral three times daily. He was continued on home medications including fluoxetine 20 mg orally daily for depression, gabapentin 300 mg Po daily as needed for anxiety, allopurinol for gout, ranitidine for acid reflux, viagra for erectile dysfunction, as needed trazodone 50 mg nightly for sleep, vitamin D, folic acid and thiamine. He was placed on a [facility] protocol for alcohol withdrawal symptoms. 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 We discussed his triggers which include holidays, isolation (des[place] living [place] family, says gf. works long hours andf they have little time together) and seasonal weather. Agreeable to returning to outpatient therapy/follow up for medications, says will return to hospital if feels unsafe. HOSPITAL COURSE: see above. DISCHARGE ASSESSMENT: On discharge patient is not suicidal or homicidal, denies nba, denies hallucinations, denies paranoia or persecutory delusions. Patient denies common or rare side effects of medications. Patient reports he is feeling "good" and looks forward to return home, MENTAL STATUS EXAMINATION ON DISCHARGE: General Appearance: disheveled (Has tattoos on forearm), hospital scrubs/clothing Build: average Demeanor: cooperative, pleasant Eye Contact: normal Activity: anxious Behavior: cooperative, less withdrawn, Speech: clear, spontaneous, reg/rate,rhythm,volume Mood: mild anxiety "good" Affect: constricted, mildly anxious Thought Process: logical/linear, Thought Content (Delusions): none reported, denies SI/HI/AVH/nba Thought Content (Other): none reported Thought Content (Aggressive): none reported Perception (Hallucinations): none reported Perception (Other): none reported Cognition (Impairment of): attention/concentration Cognition(Intelligence Est.): average Oriented: Awake, Alert, Oriented times three Insight: good Judgment: fair. Psychosis: Denies MEDICATIONS ON DISCHARGE: Scheduled Acamprosate Calcium (Acamprosate Calcium) 333 Mg Tablet.dr, 666 MG PO TID for alcohol cravings Allopurinol (Allopurinol) 100 Mg Tab, 100 MG PO DAILY for Gout Aripiprazole (Abilify) 5 Mg Tablet, 2.5 MG PO QHS for depression Cholecalciferol (Vitamin D3) (Vitamin D3) 1,000 Unit Tab, 2,000 UNITS PO DAILY for supplement Fluoxetine Hcl (Fluoxetine HCl) 20 Mg Capsule, 20 MG PO DAILY for depression Folic Acid (Folic Acid) 1 Mg Tab, 1 MG PO DAILY for supplement Lisinopril (Lisinopril) 20 Mg Tablet, 10 MG PO DAILY for blood pressure Multivitamins (Thera M Plus Tablet) 1 Tab Tab, 1 TAB PO DAILY for supplement Naltrexone HCl (Naltrexone HCl) 50 Mg Tablet, 50 MG PO DAILY for alcohol cravings Ranitidine HCl (Ranitidine HCl) 150 Mg Tab, 1 TAB PO BID for heartburn Thiamine Hcl (Vitamin B-1) 100 Mg Tab, 100 MG PO DAILY for supplement Scheduled PRN Gabapentin (Gabapentin) 300 Mg Cap, 300 MG PO DAILY PRN for ANXIETY PER [place] RECORDS Sildenafil Citrate (Viagra) 100 Mg Tab, 100 MG PO ASDIRECTED PRN for ERECTILE DYSFUNCTION Trazodone HCl (Trazodone HCl) 50 Mg Tablet, 50 MG PO QHSP PRN for INSOMNIA PLAN/FOLLOWUP ARRANGEMENTS: Follow Up Care Education Label * Medical * Medical Follow Up [facility] * Established With This Provider Yes * Therapist ARLETTE JAMA * Date February 16, 2019 * Time 09:30 * Address of Clinic or Practice [address] [place] [address] * Follow Up Care Education Label * Mental Health Appt 1 * Medical Follow Up [facility] * Established With This Provider Yes * Therapist JENNIFER * Date February 25, 2019 * Time 08:00 * Address of Clinic or Practice [address] [place] [address] * The amount of time spent in the coordination of care for this patient was approximately 15 minutes. Vital Signs/I&Os Vital Signs Date Time Temp Pulse Resp B/P (MAP) Pulse Ox O2 Delivery O2 Flow Rate FiO2 02/10/19 08:15 134/84 02/10/19 07:08 97.9 74 74 18 02/05/19 05:37 Room Air Medications Scheduled Acamprosate Calcium (Acamprosate Calcium) 333 Mg Tablet.dr, 666 MG PO TID for alcohol cravings for 7 Days, #42 Allopurinol (Allopurinol) 100 Mg Tab, 100 MG PO DAILY for Gout, (Reported) Aripiprazole (Abilify) 5 Mg Tablet, 2.5 MG PO QHS for depression for 7 Days, #4 Cholecalciferol (Vitamin D3) (Vitamin D3) 1,000 Unit Tab, 2,000 UNITS PO DAILY for supplement, (Reported) Fluoxetine Hcl (Fluoxetine HCl) 20 Mg Capsule, 20 MG PO DAILY for depression for 30 Days, #30 (Reported) Folic Acid (Folic Acid) 1 Mg Tab, 1 MG PO DAILY for supplement, (Reported) Lisinopril (Lisinopril) 20 Mg Tablet, 10 MG PO DAILY for blood pressure, (Reported) Multivitamins (Thera M Plus Tablet) 1 Tab Tab, 1 TAB PO DAILY for supplement, (Reported) Naltrexone HCl (Naltrexone HCl) 50 Mg Tablet, 50 MG PO DAILY for alcohol cravings for 7 Days, #7 Ranitidine HCl (Ranitidine HCl) 150 Mg Tab, 1 TAB PO BID for heartburn, (Reported) Thiamine Hcl (Vitamin B-1) 100 Mg Tab, 100 MG PO DAILY for supplement, (Reported) Scheduled PRN Gabapentin (Gabapentin) 300 Mg Cap, 300 MG PO DAILY PRN for ANXIETY, (Reported) PER [place] RECORDS Sildenafil Citrate (Viagra) 100 Mg Tab, 100 MG PO ASDIRECTED PRN for ERECTILE DYSFUNCTION, (Reported) Trazodone HCl (Trazodone HCl) 50 Mg Tablet, 50 MG PO QHSP PRN for INSOMNIA for 7 Days, #7 Allergies Coded Allergies: No Known Drug Allergies (Verified Allergy, Unknown, 02/04/19) FRANCISCO YOUNG PGY-1 Feb 10, 2019 10:29
== END 2019-02-10 11:10 | disposition home or self-care (01) | DRG 885 ==
LOC: M ED 12:19 → EDBD 12:19 → M ED INP 02-05 13:34 → M PSY 02-05 15:50
PROVIDERS: ADMIT Psychiatry & Neurology Psychiatry; ATTEND Psychiatry & Neurology Psychiatry
DX: F33.2 Major depressive disorder, recurrent severe without psychotic features (principal); F10.20 Alcohol dependence, uncomplicated; I10 Essential (primary) hypertension; M10.9 Gout, unspecified; N52.9 Male erectile dysfunction, unspecified; Z79.899 Other long term (current) drug therapy

== ENCOUNTER 2019-10-30 23:19 | Inpatient (IN) | payer OTHER ==
[~2019-10-30] VITALS: Ht 188 cm; Wt 98.2 kg
[~2019-10-30 23:19] MED LIST changes: +ABIL1TAB11 PO; +LISI-538 PO; +PRIL20TA2 PO; +RANI-397 PO; -RANI1TAB6 PO; +TRAZ1TAB10 PO
[2019-10-31 00:31] LABS: HEMATOCRIT 42.4 % (42.0-52.0); HEMOGLOBIN 14.5 g/dl (13.5-17.5); MEAN CORPUSCULAR HEMOGLOBIN 33.4 pg (27.0-33.0); MEAN CORPUSCULAR HGB CONC 34.2 g/dl (32.0-36.5); MEAN CORPUSCULAR VOLUME 97.7 fl (80.0-96.0); PLATELET COUNT, AUTOMATED 139 10^3/uL (150-450); RED BLOOD COUNT 4.34 10^6/uL (4.30-6.10)
[2019-10-31 00:58] LABS: ACETAMINOPHEN LEVEL < 2.0 UG/ML (10.0-30.0); ALBUMIN 3.9 GM/DL (3.2-5.2); ALT/SGPT 83 U/L (12-78); BILIRUBIN,DIRECT 0.6 MG/DL (0.0-0.2); BILIRUBIN,TOTAL 1.1 MG/DL (0.2-1.0); BLOOD UREA NITROGEN 10 MG/DL (7-18); CARBON DIOXIDE LEVEL 21 MEQ/L (21-32); CHLORIDE LEVEL 93 MEQ/L (98-107); CREATININE FOR GFR 0.97 MG/DL (0.70-1.30); ETHYL ALCOHOL (ETHANOL) 0.314 % (0.000-0.010); GLOMERULAR FILTRATION RATE > 60.0 (>56); GLUCOSE, FASTING 117 MG/DL (70-100); POTASSIUM SERUM 3.4 MEQ/L (3.5-5.1); SALICYLATE LEVEL < 1.7 MG/DL (5.0-30.0); SODIUM LEVEL 134 MEQ/L (136-145); TOTAL PROTEIN 7.5 GM/DL (6.4-8.2)
[2019-10-31 06:17] LABS: AMPHETAMINES LEVEL URINE NEGATIVE (NEGATIVE); BARBITURATES URINE NEGATIVE (NEGATIVE); BENZODIAZEPINES URINE NEGATIVE (NEGATIVE); CANNABINOIDS URINE NEGATIVE (NEGATIVE); COCAINE METABOLITE URINE NEGATIVE (NEGATIVE); METHADONE URINE NEGATIVE (NEGATIVE); OPIATES URINE NEGATIVE (NEGATIVE); PHENCYCLIDINE URINE NEGATIVE (NEGATIVE)
[2019-10-31] MEDS ORDERED: THIAMINE 100 MG TAB PO SCH (06:40)
[2019-10-31] MEDS ORDERED: LORazepam 2 MG TAB PO PRN (06:45)
[2019-10-31] MEDS ORDERED: NICOTINE 21MG/24HR 1 EA TRANSDERMAL TD SCH (09:00)
[2019-10-31] MEDS ORDERED: MULTIVITAMINS/MINERALS THERAP 1 TAB PO SCH (09:00)
[2019-10-31] MEDS ORDERED: FOLIC ACID 1 MG TAB PO SCH (09:00)
[2019-10-31] MEDS ORDERED: ACETAMINOPHEN TAB 650MG DOSE (2X325MG) PO PRN (13:00)
[2019-10-31] MEDS ORDERED: traZODone 50 MG TAB PO PRN (13:00)
[2019-10-31] MEDS ORDERED: MOM 30ML SUSPENSION UDC PO PRN (13:00)
[2019-10-31] MEDS ORDERED: MAALOX 30 ML SUSP *UDC PO PRN (13:00)
[2019-10-31] MEDS: LORazepam 2 MG TAB PO PRN ×2 (14:24→19:06)
[2019-10-31] MEDS ORDERED: lisinopriL 10 MG TAB PO ONE (16:15)
[2019-10-31 18:14] VITALS: BP 147/82
[2019-10-31 18:16] VITALS: BP 147/82
[2019-10-31 20:20] VITALS: BP 125/75
[2019-10-31] MEDS: THIAMINE 100 MG TAB PO SCH (20:47)
[2019-11-01 06:16] VITALS: BP 132/85
[2019-11-01 07:20] LABS: CLOSTRIDIUM DIFFICILE PCR NEGATIVE (NEGATIVE)
[2019-11-01 08:40] VITALS: BP_SYST 132; BP_SYST 135; BP_DIAS 85
[2019-11-01] MEDS ORDERED: POTASSIUM CHLORIDE 10 MEQ SR TABLET PO ONE (09:00)
[2019-11-01] MEDS: FOLIC ACID 1 MG TAB PO SCH (09:25)
[2019-11-01] MEDS: THIAMINE 100 MG TAB PO SCH ×2 (09:25→21:10)
[2019-11-01] MEDS: MULTIVITAMINS/MINERALS THERAP 1 TAB PO SCH (09:26)
--- NOTE | 2019-11-01 09:45 | HPEPDOC ---
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 Patient stated that he had drank too much like usual an snapped but does not provide further details as to what was said or done. He reports that he started having some diarrhea yesterday, reports 1 episode yesterday and several today. Noted that it is normal for him after he stopped drinking. He otherwise denies any other complaints including fever, chills, nausea, vomiting, abdominal discomfort, chest pain, SOB. Of note, he has skin cancer to his right ear and has had surgery with skin graft to the area. PAST MEDICAL HISTORY: Refer to [facility] PAST SURGICAL HISTORY: R. ear skin graft SOCIAL HISTORY: Alcohol abuse. Denies tobacco or illicit drug use. FAMILY HISTORY: Father- brain tumor ALLERGIES: Please see below. REVIEW OF SYSTEMS: 10 point review of system negative except as stated in HPI HOME MEDICATIONS: Please see below. PHYSICAL EXAMINATION: General: No acute distress, Alert Eyes: Normal sclers HENT: Atraumatic, R. ear with thickened/disfigured ear lobes with overlying skin changes Cardiovascular: Normal rate, normal rhythm. Pulmonary: Clear to auscultation b/l, no wheezing GI: Soft, nontender, nondistended Skin: R. ear skin slough with dried pus, no active discharge. Neuro: CN grossly intact. No focal deficits. Strengths equal b/l. Psych: oriented x 3 LABORATORY DATA: See below. IMAGING: None MICROBIOLOGY: Please see below. ASSESSMENT AND PLAN: 1. Anxiety/Depression - Evaluate and manage per psych. 2. Alcohol abuse - Potential for withdraw. - CIWA monitor. Supplement with vitamins, folate, thiamine. 3. Diarrhea - likely 2/2 cessation of alcohol. Patient reports recurrence problem in the past when alcohol is stopped. - GI panel ordered. f/u findings. 4. HTN - c/w Lisinopril. 5. hx gout - has not had recurrence in long time. - not on any chronic medications. Please call back with any questions or concerns Vital Signs Vital Signs Date Time Temp Pulse Resp B/P (MAP) Pulse Ox O2 Delivery O2 Flow Rate FiO2 11/01/19 08:40 107 132/85 11/01/19 06:16 98.3 18 10/31/19 20:20 95 Room Air Laboratory Data Labs 24H Laboratory Tests 2 11/01/19 06:15: Clostridium difficile [id number] PRESUMPTIVE NEGATIVE, Clostridium difficile Toxin (PCR) NEGATIVE Home Medications Scheduled Lisinopril (Lisinopril) 20 Mg Tablet, 10 MG PO DAILY for blood pressure Allergies Coded Allergies: No Known Drug Allergies (Verified Allergy, Unknown, 02/04/19) A-FIB/CHADSVASC A-FIB History Current/History of A-Fib/PAF?: No TG MASTERS MD Nov 01, 2019 09:45
[2019-11-01] MEDS: lisinopriL 10 MG TAB PO SCH (11:30)
[2019-11-01 12:30] VITALS: BP 101/60
[2019-11-01] MEDS: NALTREXONE 50 MG TAB PO SCH (14:05)
[2019-11-01] MEDS: FLUoxetine 20 MG CAP PO SCH (14:05)
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
[2019-11-01] MEDS: GABAPENTIN 300 MG CAP PO SCH ×2 (16:38→21:10)
[2019-11-01 19:00] VITALS: BP 117/62
[2019-11-02 06:24] VITALS: BP 121/70
[2019-11-02] MEDS: FLUoxetine 20 MG CAP PO SCH (08:27)
[2019-11-02] MEDS: FOLIC ACID 1 MG TAB PO SCH (08:27)
[2019-11-02] MEDS: MULTIVITAMINS/MINERALS THERAP 1 TAB PO SCH (08:27)
[2019-11-02] MEDS: lisinopriL 10 MG TAB PO SCH (08:27)
[2019-11-02] MEDS: NALTREXONE 50 MG TAB PO SCH (08:27)
[2019-11-02] MEDS: THIAMINE 100 MG TAB PO SCH ×2 (08:27→20:40)
[2019-11-02] MEDS: GABAPENTIN 300 MG CAP PO SCH ×3 (08:27→20:40)
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
[2019-11-02 16:57] VITALS: BP 134/78
[2019-11-03 06:29] VITALS: BP 135/74
[2019-11-03] MEDS: THIAMINE 100 MG TAB PO SCH (08:44)
[2019-11-03] MEDS: GABAPENTIN 300 MG CAP PO SCH ×3 (08:44→21:07)
[2019-11-03] MEDS: FLUoxetine 20 MG CAP PO SCH (08:44)
[2019-11-03] MEDS: FOLIC ACID 1 MG TAB PO SCH (08:45)
[2019-11-03] MEDS: MULTIVITAMINS/MINERALS THERAP 1 TAB PO SCH (08:45)
[2019-11-03] MEDS: NALTREXONE 50 MG TAB PO SCH (08:45)
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
[2019-11-03] MEDS: lisinopriL 10 MG TAB PO SCH (10:23)
[2019-11-03 16:30] VITALS: BP 134/71
[2019-11-03 20:28] VITALS: BP 134/71
[2019-11-04 06:05] VITALS: BP 128/82
[2019-11-04] MEDS: FOLIC ACID 1 MG TAB PO SCH (08:26)
[2019-11-04] MEDS: GABAPENTIN 300 MG CAP PO SCH (08:26)
[2019-11-04] MEDS: FLUoxetine 20 MG CAP PO SCH (08:26)
[2019-11-04] MEDS: MULTIVITAMINS/MINERALS THERAP 1 TAB PO SCH (08:26)
[2019-11-04] MEDS: NALTREXONE 50 MG TAB PO SCH (08:27)
[2019-11-04 08:28] VITALS: BP 108/56
[2019-11-04] MEDS: lisinopriL 10 MG TAB PO SCH (08:28)
[2019-11-04] MEDS ORDERED: ANTA250T PO (09:12)
[2019-11-04] MEDS ORDERED: NALT50TA4 PO (09:12)
[2019-11-04] MEDS ORDERED: TRAZ-252 PO (09:12)
[2019-11-04] MEDS ORDERED: FLUO20CA19 PO (09:12)
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
== END 2019-11-04 13:33 | disposition home or self-care (01) | DRG 885 ==
LOC: M ED 23:19 → M ED INP 10-31 12:56 → M PSY 10-31 18:00
PROVIDERS: ADMIT Psychiatry & Neurology Psychiatry; ATTEND Psychiatry & Neurology Psychiatry
DX: F33.2 Major depressive disorder, recurrent severe without psychotic features (principal); F10.239 Alcohol dependence with withdrawal, unspecified; F10.229 Alcohol dependence with intoxication, unspecified; I10 Essential (primary) hypertension; R19.7 Diarrhea, unspecified; M10.9 Gout, unspecified; Z59.9 Problem related to housing and economic circumstances, unspecified; Z56.0 Unemployment, unspecified; Z85.828 Personal history of other malignant neoplasm of skin; Z79.899 Other long term (current) drug therapy

== ENCOUNTER 2020-01-04 16:28 | Inpatient (IN) | payer OTHER ==
[~2020-01-04] VITALS: Ht 185.4 cm; Wt 85.1 kg
[~2020-01-04 16:28] MED LIST changes: +ANTA250T PO; -FLUO20CA19 PO; +FLUO20CA22 PO; +TRAZ-252 PO
[2020-01-04 18:45] VITALS: BP 147/72
[2020-01-04 20:00] VITALS: BP 151/76
[2020-01-04] MEDS ORDERED: OCTREOTIDE ACETATE 1,200 MCG in NS 238.8 ML IV SCH (20:00)
[2020-01-04] MEDS: PANTOPRAZOLE SODIUM 40 MG in D5W 50 ML IV SCH (20:11)
[2020-01-04] MEDS ORDERED: MIDAZOLAM INJ 2 MG/2 ML VIAL (J2250) As Ordered ONE (20:17)
[2020-01-04] MEDS ORDERED: fentaNYL 100 MCG/2 ML INJECTION (J3010) As Ordered ONE (20:17)
[2020-01-04] MEDS ORDERED: propofoL 200 MG/20 ML VIAL As Ordered ONE (20:18)
[2020-01-04] MEDS ORDERED: LIDOCAINE 2% INJ 100 MG/5 ML SDV (FOR ANES.) As Ordered ONE (20:18)
[2020-01-04] MEDS ORDERED: SUCCINYLCHOLINE 100 MG/5 ML SYRINGE (J0330) As Ordered ONE (20:19)
[2020-01-04 20:38] LABS: HEMATOCRIT 28.1 % (42.0-52.0); HEMOGLOBIN 9.6 g/dl (13.5-17.5); MEAN CORPUSCULAR HEMOGLOBIN 34.8 pg (27.0-33.0); MEAN CORPUSCULAR HGB CONC 34.2 g/dl (32.0-36.5); MEAN CORPUSCULAR VOLUME 101.8 fl (80.0-96.0); PLATELET COUNT, AUTOMATED 100 10^3/uL (150-450); RED BLOOD COUNT 2.76 10^6/uL (4.30-6.10); WHITE BLOOD COUNT 9.2 10^3/uL (4.0-10.0)
[2020-01-04 20:49] LABS: INR 1.14; PROTHROMBIN TIME 14.4 SECONDS (11.8-14.0)
[2020-01-04 20:59] LABS: ALBUMIN 2.8 GM/DL (3.2-5.2); ALT/SGPT 49 U/L (12-78); BILIRUBIN,TOTAL 1.3 MG/DL (0.2-1.0); BLOOD UREA NITROGEN 35 MG/DL (7-18); CALCIUM LEVEL 7.6 MG/DL (8.5-10.1); CARBON DIOXIDE LEVEL 22 MEQ/L (21-32); CHLORIDE LEVEL 100 MEQ/L (98-107); CREATININE FOR GFR 0.97 MG/DL (0.70-1.30); GLOMERULAR FILTRATION RATE > 60.0 (>56); GLUCOSE, FASTING 174 MG/DL (70-100); POTASSIUM SERUM 3.4 MEQ/L (3.5-5.1); SODIUM LEVEL 136 MEQ/L (136-145); TOTAL PROTEIN 5.6 GM/DL (6.4-8.2)
[2020-01-04] MEDS ORDERED: cefTRIAXone SOD 1 GM in D5W MINI-BAG PLUS 50 ML IV SCH (21:00)
[2020-01-04] MEDS ORDERED: PHENYLephrine HCL 500 MCG/5 ML (100MCG/ML) SYRINGE (J2370) As Ordered ONE ×2 (21:05→21:19)
[2020-01-04] MEDS ORDERED: dexameTHASONE 4 MG/ML 1ML VIAL (J1100) As Ordered ONE (21:05)
[2020-01-04] MEDS ORDERED: ONDANSETRON 4MG/2ML VIAL (J2405) As Ordered ONE (21:06)
--- NOTE | 2020-01-04 21:07 | HPEPDOC ---
General Date of Admission Jan 04, 2020 at 18:39 Date of Service: Jan 04, 2020 Chief Complaint The patient is a 59-year-old male admitted with a reason for visit of active hematemesis Source: Patient, EMS notes reviewed Exam Limitations: No limitations Timing/Duration: Day(s) (3) Severity: Severe Associated Symptoms: Loss of appetite, Nausea, Vomiting, Weakness, Dizziness, Mechanical fall History of Present Illness 51-year-old male with past medical history of severe depression, heavy alcoholism, hypertension presents as direct floor transfer from other facility for active hematemesis. Patient reports that hematemesis began on in which he had multiple episodes of bloody vomiting of vicente red blood. He states that he has been drinking one half bottle of hard liquor per day for the past 20 years and has never had this happen before. When It initially started, patient s ays that he threw up multiple cupfuls of vicente red blood. He said that he also felt dizzy and may have syncopized as well. Patient estimates approximately 30 episodes of bloody vomiting since to the present time. In between these episodes patient would attempt to get up and go to the bathroom but states that he also passed out and hit his face, head, ribs on the floor. He believes he may have passed out approximately 4-6 times over the last several days as well. On day of presentation, patient states that he went to the bathroom after throwing up blood and likely collapsed. His mother found him on the floor in the bathroom with blood and therefore called 911. Patient was initially taken to a different facility and underwent ER evaluation. During that time, ER notes from that facil ity revealed 700 mL of active hematemesis noted. Patient was therefore transferred to [facility] as episode did not have ICU capabilities or GI doctor product distribution specialist. Labs that were drawn at that ER revealed a hemoglobin drop of 2 g from his baseline of 13 and 14. Upon arrival to [facility], patient was noted to be tachycardic. He was also having multiple episodes of hematemesis as well during the interview on my exam. Approximately 100 mL of gross red blood was noted in the emesis bag when I saw. Patient reports no fevers, chills, shortness of breath. Patient does endorse having severe abdominal pain that starts in the epigastric region and is now radiated all throughout. He also states that he has had multiple dark stools that were sticky black last episode occurring last night. He states that his last drink was approximately 2 days ago. Patient denies any recent travel his tory or sick contacts he denies any chest pain or palpitations as well but states that he does get lightheaded every time he stands up or has an episode of vomiting. Patient was admitted to ICU for further evaluation and GI consult called immediately. Patient is is to be taken down for emergent EGD given concern of active hematemesis of significant amount. Home Medications No Active Prescriptions or Reported Meds Allergies Coded Allergies: No Known Drug Allergies (Verified Allergy, Unknown, 02/04/19) Past Medical History Medical History Hypertension, depression, heavy alcoholism Surgical History Patient does not recall Family History Significant Family History: Cancer, Hypertension Father of brain tumor Social History * Smoker: Denies Alcohol: heavy (drinks one half bottle of hard liquor per day for the past 20 years) Drugs: other (former cocaine and marijuana use last use being over 5 years ago) Recent Travel/Sick Contacts: Denies: Recent travel, Recent sick contacts Psychosocial History: Decreased mood, Depression, Prior suicide attempt, Suicidal thoughts Currently lives by himself. 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 he is independent in his ADLs and IADLs. A-FIB/CHADSVASC A-FIB History Current/History of A-Fib/PAF?: No Review of Systems Constitutional: Reports: Malaise, Weakness, Fatigue; Denies: Chills, Fever, Night Sweats Eyes: Denies: Pain, Vision change ENT: Denies: Head Aches, Dysphagia, Sore Throat Skin: Denies: Rash, Lesions, Jaundice Pulmonary: Denies: Dyspnea, Cough, Pleuritic Chest Pain Cardiovascular: Reports: Lt Headedness; Denies: Chest Pain, Palpitations, Edema Gastrointestinal: Reports: Nausea, Vomiting, Abdominal Pain, Melena Genitourinary: Denies: Dysuria, Frequency Hematologic: Reports: Bleeding Excessively; Denies: Bruising Musculoskeletal: Denies: Neck Pain, Shoulder Pain, Muscle Pain Neurological: Denies: Weakness, Numbness, Change in speech, Confusion, Seizures Psych: Reports: Depression Physical Examination General Exam: Positive: Alert, Cooperative, Moderate Distress (white male, appears older than stated age, actively throwing up blood, appears to be in severe abdominal pain) Eye Exam: Positive: PERRLA, EOMI, Sclera icteric ENT Exam: Positive: Other ENT (bruising noted of the right eye and cheek bone, mucous membranes appear to be dry, dry blood around the mouth) Neck Exam: Positive: Supple; Negative: JVD, thyromegaly Chest Exam: Positive: Clear to auscultation, Normal air movement; Negative: Wheezing Heart Exam: Positive: Tachycardic, Regular Rhythm, Normal S1, Normal S2 Abdomen Exam: Positive: Normal bowel sounds, Soft, Tenderness (in all 4 quadrants but more so in the upper quadrants bilaterally) Extremity Exam: Negative: Clubbing, Cyanosis Skin Exam: Negative: Breakdown, Lesion Neuro Exam: Positive: Normal Speech, Strength at 5/5 X4 ext, Normal Tone, Sensation Intact Psych Exam: Positive: Mental status NL, Oriented x 3 Vital Signs Vital Signs Date Time Temp Pulse Resp B/P (MAP) Pulse Ox O2 Delivery O2 Flow Rate FiO2 01/04/20 20:00 98.3 114 20 151/76 (101) 98 Room Air Laboratory Data Labs 24H Laboratory Tests 2 01/04/20 20:02: Nucleated Red Blood Cells % (auto) 0.3H, Prothrombin Time 14.4H, Prothromb Time International Ratio 1.14, Anion Gap 14, Glomerular Filtration Rate > 60.0, Lactic Acid Level 2.3*H, Calcium Level 7.6L, Total Bilirubin 1.3H, Aspartate Amino Transf (AST/SGOT) 134H, Alanine Aminotransferase (ALT/SGPT) 49, Alkaline Phosphatase 66, Total Protein 5.6L, Albumin 2.8L, Albumin/Globulin Ratio 1.00 01/04/20 20:16: Bedside Glucose (Misc Panel) 182H CBC/BMP Laboratory Tests 01/04/20 20:02 RAD Interpretation STUDY: CXR Rad Actions: Report Reviewed RAD Interpretation: Other Result Comments: (no free air observed) STUDY: CT abdomen pelvis Rad Actions: Report Reviewed RAD Interpretation: Other Result Comments: (moderate to severe fatty liver with no free air) Assessment/Plan 59-year-old male with known history of severe alcoholism presents with active hematemesis. Hemoglobin noted to have dropped 4 g her baseline upon most recent labs. Concern for possible esophageal varices that are actively bleeding or some other source of upper GI bleeding due to alcoholic gastritis. Emergent GI consult was called and patient to undergo emergent EGD today. Octreotide and Protonix drip have been initiated as well as fluid resuscitation. Antibiotics have been started for prophylaxis given concern for esophageal varices. We'll continue to monitor patient closely for any further drops in hemoglobin and hemodynamic instability. Problems (1) GI bleed Status: Acute Discussed With: Engineering Documentation Specialist Problem Specific Plan: Consult Specialist Problem Text: Patient having active upper GI bleed with concern for bleeding varices at this time. Hemoglobin has dropped 4 g from baseline although he is not hypotensive at this time. Patient scheduled for emergent EGD by GI team. - Follow up recommendations and results from EGD - Continue with octreotide drip - Continue with Protonix drip - Maintain at least 2 large-bore IVs - Maintain active type and screen - Keep nothing by mouth for now - Continue with IV fluids at 150 mL per hour normal saline - Start antibiotic prophylaxis with ceftriaxone for no more than 7 days - no variceal bleeding is found, can discontinue (2) Acute blood loss anemia Status: Acute Response to Treatment: Worse Problem Text: Due to likely upper GI bleed. - Transfuse if hemoglobin less than 7 - Maintain active type and screen and 2 large-bore IVs (3) Rib fracture Status: Acute Problem Text: Aspirin imaging from previous facility, patient has an acute rib fracture likely from his episodes of syncope. - Lidocaine patch the site - Pain control when necessary with morphine - Incentive spirometer (4) HTN (hypertension) Status: Chronic Problem Text: Currently not taking any medications. No reason for DP control at this time given active GI bleed. (5) Depression Status: Chronic Problem Text: Patient has known depression and recent suicide attempt. Patient has been drinking due to his depression. Currently denies any suicidal or homicidal ideation at this time. We will need to monitor closely. (6) Alcohol abuse Status: Chronic Problem Text: Patient reports last drink was approximately 40 hours prior to presentation. Given his heavy history of alcohol abuse, concern for possible seizures or withdrawal. - CIWA protocol q8hrs - Ativan when necessary Plan / VTE VTE Prophylaxis Ordered?: No VTE Exclusion Pharmacological: Hemorrhage Plan IVF: Initiate Diet: Make NPO Medications: Replete Electrolytes PO, Start Antibiotics Diagnostics: Check Labs Anticipated Discharge: Home BARBARA ONEAL MD Jan 04, 2020 21:07
[2020-01-04] MEDS ORDERED: ONDANSETRON 4MG/2ML VIAL (J2405) IV PRN ×2 (21:15→22:00)
--- NOTE | 2020-01-04 21:41 | ROOR ---
Patient Name: Chris Penn Procedure Date: 01/04/2020 8:29 PM Date of : 1960 Age: 59 Gender: Male Note Status: Finalized Procedure: Upper GI endoscopy Indications: Hematemesis Providers: Dereck GARCIA MD Referring MD: 2. Inpatient 2. Inpatient Requesting Provider: Medicines: General Anesthesia Complications: No immediate complications. Procedure: Pre-Anesthesia Assessment: - The heart rate, respiratory rate, oxygen saturations, blood pressure, adequacy of pulmonary ventilation, and response to care were monitored throughout the procedure. The upper GI endoscopy was accomplished without difficulty. The patient tolerated the procedure well. The Endoscope was introduced through the mouth, and advanced to the second part of duodenum. Findings: Moderately severe esophagitis was found in the lower third of the esophagus. A medium bleeding Mandie-Nuñez tear with stigmata of recent bleeding was found. To repair the defect, the tissue edges were approximated and three hemostatic clips were successfully placed. Closure of the defect was successful. There was no bleeding at the end of the procedure. No gross lesions were noted in the entire examined stomach. No gross lesions were noted in the entire examined duodenum. Clotted blood was found in the entire esophagus. Clotted blood was found in the gastric body. Impression: - Moderately severe distal esophagitis. - Mandie-Nuñez tear in distal esophagus/GE junction. Clips were placed. - No gross lesions in the stomach. - No gross lesions in the entire examined duodenum. - Fresh/Clotted blood in the esophagus-removed. - Fresh/Clotted blood in the gastric body-removed. - No esophageal or gastric varices seen. - No specimens collected. Recommendation: - Observe patient's clinical course. - Use Zofran (ondansetron) 4 mg IV TID for 1 day. - Use a proton pump inhibitor IV BID for 1 day. - Around the clock nausea suppression, Monitor for rebleeding. Advance to clear liquid in am, then full liquid diet in pm tomorrow as tolerated if Hb stable and no further signs of vomiting/retching. - No varices seen, Can stop Octreotide gtt. Dereck Garcia MD Dereck GARCIA MD 01/04/2020 9:40:42 PM Electronically signed by Dereck GARCIA MD Number of Addenda: 0 Note Initiated On: 01/04/2020 8:29 PM Estimated Blood Loss: Estimated blood loss: none.
[2020-01-04] MEDS ORDERED: LORazepam 2 MG TAB PO PRN (21:45)
[2020-01-04 22:00] VITALS: BP 150/71
[2020-01-04] MEDS ORDERED: LR 1,000 ML IV SCH (22:00)
[2020-01-04] MEDS ORDERED: fentaNYL 100 MCG/2 ML INJECTION (J3010) IV PRN (22:00)
[2020-01-04] MEDS ORDERED: HYDROMORPHONE HCL 0.5 MG/ 0.5 ML SYRINGE (J1170 PER 1) IV PRN (22:00)
[2020-01-04] MEDS ORDERED: NS 1,000 ML IV ONE (22:00)
[2020-01-04 22:30] VITALS: BP 162/86
[2020-01-04 23:05] VITALS: BP 163/83
[2020-01-04 23:35] VITALS: BP 153/90
[2020-01-05] VITALS (10 sets, daily range): BP systolic 134–160; BP diastolic 64–83
[2020-01-05] MEDS: THIAMINE 100 MG TAB PO SCH ×3 (00:25→20:30)
[2020-01-05] MEDS: ONDANSETRON 4MG/2ML VIAL (J2405) IV SCH ×4 (00:26→18:31)
[2020-01-05] MEDS: NS 1,000 ML IV SCH ×3 (00:26→11:20)
[2020-01-05] MEDS: PANTOPRAZOLE SODIUM 40 MG in D5W 50 ML IV SCH ×2 (00:32→05:07)
[2020-01-05 05:08] LABS: HEMATOCRIT 27.8 % (42.0-52.0); HEMOGLOBIN 9.3 g/dl (13.5-17.5); MEAN CORPUSCULAR HEMOGLOBIN 34.2 pg (27.0-33.0); MEAN CORPUSCULAR HGB CONC 33.5 g/dl (32.0-36.5); MEAN CORPUSCULAR VOLUME 102.2 fl (80.0-96.0); RED BLOOD COUNT 2.72 10^6/uL (4.30-6.10); WHITE BLOOD COUNT 6.6 10^3/uL (4.0-10.0)
[2020-01-05 05:18] LABS: ALBUMIN 2.7 GM/DL (3.2-5.2); ALT/SGPT 43 U/L (12-78); BILIRUBIN,TOTAL 0.9 MG/DL (0.2-1.0); BLOOD UREA NITROGEN 30 MG/DL (7-18); CALCIUM LEVEL 7.8 MG/DL (8.5-10.1); CARBON DIOXIDE LEVEL 23 MEQ/L (21-32); CHLORIDE LEVEL 104 MEQ/L (98-107); GLOMERULAR FILTRATION RATE > 60.0 (>56); GLUCOSE, FASTING 156 MG/DL (70-100); POTASSIUM SERUM 3.4 MEQ/L (3.5-5.1); SODIUM LEVEL 137 MEQ/L (136-145); TOTAL PROTEIN 5.9 GM/DL (6.4-8.2)
[2020-01-05 05:36] LABS: PLATELET COUNT, AUTOMATED 84 10^3/uL (150-450)
[2020-01-05] MEDS ORDERED: KCL 10MEQ/100ML SWI (KRUN) 10 MEQ in IV 1 EA IV ONE (08:00)
[2020-01-05] MEDS: FOLIC ACID 1 MG TAB PO SCH (08:47)
[2020-01-05] MEDS: LIDOCAINE 5% (LIDODERM) PATCH TD SCH (08:47)
[2020-01-05] MEDS: MULTIVITAMINS/MINERALS THERAP 1 TAB PO SCH (08:47)
[2020-01-05] MEDS: SUCRALFATE 1 GM TAB PO SCH ×3 (12:00→23:27)
--- NOTE | 2020-01-05 13:27 | IPNPDOC ---
Subjective Date Seen The patient was seen on 01/05/20. Subjective Chief Complaint/HPI Chris has not had any further hematemesis nor syncope. He denies any abd pain. He is having active DTs. Objective Physical Examination General Exam: Positive: Alert, Mild Distress, Other (DTs) Eye Exam: Positive: PERRLA, EOMI, Sclera icteric ENT Exam: Positive: Other ENT (bruising noted of the right eye and cheek bone, mucous membranes appear to be dry, dry blood around the mouth) Neck Exam: Positive: Supple; Negative: JVD, thyromegaly Chest Exam: Positive: Clear to auscultation, Normal air movement; Negative: Wheezing Heart Exam: Positive: Rate Normal, Regular Rhythm, Normal S1, Normal S2 Abdomen Exam: Positive: Normal bowel sounds, Soft; Negative: Tenderness Extremity Exam: Negative: Clubbing, Cyanosis Skin Exam: Negative: Breakdown, Lesion Neuro Exam: Positive: Normal Speech Psych Exam: Positive: Mental status NL, Oriented x 3 Assessment /Plan Assessment # Acute Upper GI bleed due to Mandie-Nuñez tear and distal Ulcerative esophagitis # Acute blood loss anemia due to above - s/p EGD with hemostatic clip x 3 - carafate QID - stop protonix gtt and start IV protonix bid - advance diet as tolerated - home in 1-2 days # Acute traumatic rib fracture - Lidocaine patch the site - Incentive spirometer # Chronic alcoholism - CIWA protocol - thiamine/mvi/folic acid # Hypokalemia - IV KCL today # Lactic acidemia - likely from alcoholic liver disease Dispo: home in next 1-2 days Plan/VTE VTE Prophylaxis Ordered?: No VTE Exclusion Mechanical Proph: N/A:VTE Prophy Ordered VTE Exclusion Pharmacological: Hemorrhage VS, I&O, 24H, Fishbone Vital Signs/I&O Vital Signs Date Time Temp Pulse Resp B/P (MAP) Pulse Ox O2 Delivery O2 Flow Rate FiO2 01/05/20 12:00 97.2 94 18 137/82 (100) 97 Room Air 01/04/20 21:40 10 I&O- Last 24 Hours up to 6 AM 01/05/20 06:00 Intake Total 3670 ml Output Total 30 ml Balance 3640 ml Laboratory Data 24H LABS Laboratory Tests 2 01/04/20 20:02: Nucleated Red Blood Cells % (auto) 0.3H, Prothrombin Time 14.4H, Prothromb Time International Ratio 1.14, Anion Gap 14, Glomerular Filtration Rate > 60.0, Lactic Acid Level 2.3*H, Calcium Level 7.6L, Total Bilirubin 1.3H, Aspartate Amino Transf (AST/SGOT) 134H, Alanine Aminotransferase (ALT/SGPT) 49, Alkaline Phosphatase 66, Total Protein 5.6L, Albumin 2.8L, Albumin/Globulin Ratio 1.00 01/04/20 20:16: Bedside Glucose (Misc Panel) 182H 01/05/20 00:57: Lactic Acid Followup at 4 Hours 2.1*H 01/05/20 04:47: Nucleated Red Blood Cells % (auto) 0.5H, Anion Gap 10, Glomerular Filtration Rate > 60.0, Lactic Acid Level 2.1*H, Calcium Level 7.8L, Total Bilirubin 0.9, Aspartate Amino Transf (AST/SGOT) 89H, Alanine Aminotransferase (ALT/SGPT) 43, Alkaline Phosphatase 63, Total Protein 5.9L, Albumin 2.7L, Albumin/Globulin Ratio 0.84L, Immature Platelet Fraction 6.6 01/05/20 09:29: Lactic Acid Followup at 4 Hours 3.3*H CBC/BMP Laboratory Tests 01/04/20 20:02 01/05/20 04:47 JOANA MONSIVAIS MD Jan 05, 2020 13:21
[2020-01-05] MEDS: **NOTE PATIENT COMMENT** MISC XX SCH (20:30)
[2020-01-05] MEDS: PANTOPRAZOLE 40MG INJ (PROTONIX) (C9113) IV SCH (20:30)
[2020-01-05] MEDS ORDERED: SLF 3 ML SYR IV PRN (23:45)
[2020-01-06] VITALS (12 sets, daily range): BP systolic 112–160; BP diastolic 65–90
[2020-01-06] MEDS ORDERED: ONDANSETRON 4MG/2ML VIAL (J2405) IV PRN
[2020-01-06] MEDS: MORPHINE 2 MG/ML 1ML VIAL (J2270) IV PRN ×2 (03:39→13:18)
[2020-01-06 05:20] LABS: HEMATOCRIT 23.3 % (42.0-52.0); HEMOGLOBIN 7.9 g/dl (13.5-17.5); MEAN CORPUSCULAR HEMOGLOBIN 34.6 pg (27.0-33.0); MEAN CORPUSCULAR HGB CONC 33.9 g/dl (32.0-36.5); MEAN CORPUSCULAR VOLUME 102.2 fl (80.0-96.0); RED BLOOD COUNT 2.28 10^6/uL (4.30-6.10); WHITE BLOOD COUNT 5.3 10^3/uL (4.0-10.0)
[2020-01-06 05:25] LABS: PLATELET COUNT, AUTOMATED 86 10^3/uL (150-450)
[2020-01-06 05:43] LABS: BLOOD UREA NITROGEN 11 MG/DL (7-18); CARBON DIOXIDE LEVEL 27 MEQ/L (21-32); CHLORIDE LEVEL 101 MEQ/L (98-107); CREATININE FOR GFR 0.58 MG/DL (0.70-1.30); GLOMERULAR FILTRATION RATE > 60.0 (>56); GLUCOSE, FASTING 115 MG/DL (70-100); POTASSIUM SERUM 2.7 MEQ/L (3.5-5.1); SODIUM LEVEL 136 MEQ/L (136-145)
[2020-01-06] MEDS ORDERED: POTASSIUM CHLORIDE 10 MEQ SR TABLET PO ONE (05:45)
[2020-01-06] MEDS: SUCRALFATE 1 GM TAB PO SCH ×3 (06:01→17:21)
[2020-01-06] MEDS: SLF 3 ML SYR IV SCH ×3 (06:01→20:10)
[2020-01-06 06:14] LABS: MAGNESIUM LEVEL 1.4 MG/DL (1.8-2.4)
[2020-01-06] MEDS ORDERED: MAG SULF 1GM/100ML (MAG RUN) 1 GM in IV 1 EA IV ONE (06:45)
[2020-01-06] MEDS: FOLIC ACID 1 MG TAB PO SCH (08:15)
[2020-01-06] MEDS: LIDOCAINE 5% (LIDODERM) PATCH TD SCH ×2 (08:15→08:23)
[2020-01-06] MEDS: PANTOPRAZOLE 40MG INJ (PROTONIX) (C9113) IV SCH ×2 (08:15→20:08)
[2020-01-06] MEDS: THIAMINE 100 MG TAB PO SCH ×2 (08:15→20:09)
[2020-01-06] MEDS: MULTIVITAMINS/MINERALS THERAP 1 TAB PO SCH (08:15)
[2020-01-06] MEDS ORDERED: MAGNESIUM OXIDE 400 MG TAB (MAG-OX) PO SCH (09:00)
[2020-01-06] MEDS: MAG SULF 1GM/100ML (MAG RUN) 1 GM in IV 1 EA IV SCH ×3 (09:38→12:00)
--- NOTE | 2020-01-06 13:29 | IPNPDOC ---
Subjective Date Seen The patient was seen on 01/06/20. Subjective Chief Complaint/HPI DTs seem better controlled this morning, although he's hypertensive. c/o pain with swallowing, I've told him it's due to ulcerative esophagitis observed during EGD. c/o nausea this morning, but otherwise tolerating regular diet. Objective Physical Examination General Exam: Positive: Alert, No Acute Distress, Other (not experiencing any DTs a this time) Eye Exam: Positive: PERRLA, EOMI ENT Exam: Positive: Mucous membr. moist/pink, Other ENT (bruising noted of the right eye and cheek bone, mucous membranes appear to be dry, dry blood around the mouth) Neck Exam: Positive: Supple; Negative: JVD, thyromegaly Chest Exam: Positive: Clear to auscultation, Normal air movement; Negative: Wheezing Heart Exam: Positive: Rate Normal, Regular Rhythm, Normal S1, Normal S2 Abdomen Exam: Positive: Normal bowel sounds, Soft; Negative: Tenderness Extremity Exam: Negative: Clubbing, Cyanosis Skin Exam: Negative: Breakdown, Lesion Neuro Exam: Positive: Normal Speech, Other (no asterixis) Psych Exam: Positive: Mental status NL, Oriented x 3 Assessment /Plan Assessment # Acute Upper GI bleed due to Mandie-Nuñez tear and distal Ulcerative esophagitis # Acute blood loss anemia due to above - s/p EGD with hemostatic clip x 3 - carafate QID - IV protonix bid - tolerating advancement in diet - PRBC x 1 ordered overnight # Acute traumatic rib fracture - Lidocaine patch the site - Incentive spirometer # Chronic alcoholism - [facility] protocol - thiamine/mvi/folic acid # Hypokalemia # Hypomagnesia - replacement ordered - recheck labs in am # Lactic acidemia - likely from alcoholic liver disease - repeat level this am is normal Dispo: home in am if Hgb stable and continues to tolerate diet Plan/VTE VTE Prophylaxis Ordered?: No VTE Exclusion Mechanical Proph: N/A:VTE Prophy Ordered VTE Exclusion Pharmacological: Hemorrhage VS, I&O, 24H, Fishbone Vital Signs/I&O Vital Signs Date Time Temp Pulse Resp B/P (MAP) Pulse Ox O2 Delivery O2 Flow Rate FiO2 01/06/20 12:00 74 131/76 01/06/20 11:56 98.0 20 98 Room Air 01/04/20 21:40 10 I&O- Last 24 Hours up to 6 AM 01/06/20 06:00 Intake Total 2270 ml Output Total 2050 ml Balance 220 ml Laboratory Data 24H LABS Laboratory Tests 2 01/05/20 23:39: Methicillin-Resist S.aureus DNA PCR NOT DETECTED 01/05/20 23:49: Urine Color STRAW, Urine Appearance CLEAR, Urine pH 7.0, Urine Specific [place] 1.006, Urine Protein NEGATIVE, Urine Glucose (UA) NEGATIVE, Urine Ketones NEGATIVE, Urine Blood 2+H, Urine Nitrite NEGATIVE, Urine Bilirubin NEGATIVE, Urine Urobilinogen 0.2, Urine Leukocyte Esterase NEGATIVE, Urine WBC (Auto) 2, Urine RBC (Auto) 24H, Urine Hyaline Casts (Auto) 0, Urine Bacteria (Auto) NEGATIVE, Urine Squamous Epithelial Cells 0, Urine Sperm (Auto) 01/06/20 04:55: Nucleated Red Blood Cells % (auto) 0.4H, Immature Platelet Fraction 5.4, Anion Gap 8, Glomerular Filtration Rate > 60.0, Lactic Acid Level 1.6, Calcium Level 8.0L, Magnesium Level 1.4L CBC/BMP Laboratory Tests 01/06/20 04:55 JOANA MONSIVAIS MD Jan 06, 2020 13:18
[2020-01-06] MEDS: POTASSIUM CHLORIDE 10 MEQ SR TABLET PO SCH ×2 (16:04→20:09)
[2020-01-06] MEDS: **NOTE PATIENT COMMENT** MISC XX SCH (20:10)
[2020-01-07] VITALS: BP 142/90
[2020-01-07] MEDS: SUCRALFATE 1 GM TAB PO SCH ×2 (00:39→05:02)
[2020-01-07 04:00] VITALS: BP 140/79
[2020-01-07] MEDS: SLF 3 ML SYR IV SCH (05:03)
[2020-01-07 05:57] LABS: HEMATOCRIT 26.8 % (42.0-52.0); HEMOGLOBIN 9.3 g/dl (13.5-17.5); MEAN CORPUSCULAR HEMOGLOBIN 34.7 pg (27.0-33.0); MEAN CORPUSCULAR HGB CONC 34.7 g/dl (32.0-36.5); PLATELET COUNT, AUTOMATED 119 10^3/uL (150-450); RED BLOOD COUNT 2.68 10^6/uL (4.30-6.10); WHITE BLOOD COUNT 5.7 10^3/uL (4.0-10.0)
[2020-01-07 06:43] LABS: BLOOD UREA NITROGEN 5 MG/DL (7-18); CALCIUM LEVEL 8.2 MG/DL (8.5-10.1); CARBON DIOXIDE LEVEL 29 MEQ/L (21-32); CHLORIDE LEVEL 99 MEQ/L (98-107); CREATININE FOR GFR 0.52 MG/DL (0.70-1.30); GLOMERULAR FILTRATION RATE > 60.0 (>56); GLUCOSE, FASTING 97 MG/DL (70-100); MAGNESIUM LEVEL 1.9 MG/DL (1.8-2.4); POTASSIUM SERUM 3.7 MEQ/L (3.5-5.1); SODIUM LEVEL 135 MEQ/L (136-145)
[2020-01-07 07:50] VITALS: BP 140/86
[2020-01-07] MEDS: POTASSIUM CHLORIDE 10 MEQ SR TABLET PO SCH (08:13)
[2020-01-07] MEDS: FOLIC ACID 1 MG TAB PO SCH (08:13)
[2020-01-07] MEDS: LIDOCAINE 5% (LIDODERM) PATCH TD SCH (08:13)
[2020-01-07] MEDS: MULTIVITAMINS/MINERALS THERAP 1 TAB PO SCH (08:13)
[2020-01-07] MEDS: THIAMINE 100 MG TAB PO SCH (08:13)
[2020-01-07] MEDS: PANTOPRAZOLE 40MG INJ (PROTONIX) (C9113) IV SCH (08:13)
[2020-01-07] MEDS ORDERED: PROTPAK PO (10:11)
[2020-01-07] MEDS ORDERED: SUCR1TA PO (10:11)
[2020-01-07] MEDS ORDERED: VITMTA PO (10:11)
[2020-01-07] MEDS ORDERED: LIDO5TD TD (10:11)
[2020-01-07] MEDS ORDERED: FOLI1TAB11 PO (10:11)
--- NOTE | 2020-01-07 10:19 | IPNPDOC ---
Subjective Date Seen The patient was seen on 01/07/20. Subjective Chief Complaint/HPI [place] is feeling shaky on his feet. Having dark stools, reassured him that is reflective of residual blood transiting the GI tract and will resolve. He has had no hematemesis. Hgb remains stable following transfusion yesterday. He is not scoring high on the CIWA scale and received ativan only once yesterday. Objective Physical Examination General Exam: Positive: Alert, No Acute Distress, Other (not experiencing any DTs a this time) Eye Exam: Positive: PERRLA, EOMI ENT Exam: Positive: Mucous membr. moist/pink, Other ENT (bruising noted of the right eye and cheek bone, mucous membranes appear to be dry, dry blood around the mouth) Neck Exam: Positive: Supple; Negative: JVD, thyromegaly Chest Exam: Positive: Clear to auscultation, Normal air movement; Negative: Wheezing Heart Exam: Positive: Rate Normal, Regular Rhythm, Normal S1, Normal S2 Abdomen Exam: Positive: Normal bowel sounds, Soft; Negative: Tenderness Extremity Exam: Negative: Clubbing, Cyanosis Skin Exam: Negative: Breakdown, Lesion Neuro Exam: Positive: Normal Speech, Other (no asterixis) Psych Exam: Positive: Mental status NL, Oriented x 3 Assessment /Plan Assessment # Acute Upper GI bleed due to Mandie-Nuñez tear and distal Ulcerative esophagitis # Acute blood loss anemia due to above - s/p EGD with hemostatic clip x 3 - carafate QID - protonix 40 mg bid - home today - f/u with pcp in 1 week - has cleared PT home safety eval # Acute traumatic rib fracture - Lidocaine patch the site - continue Incentive spirometer as outpatient # Chronic alcoholism - [facility] protocol - mvi/folic acid # Hypokalemia # Hypomagnesia - corrected # Lactic acidemia - likely from alcoholic liver disease - repeat level is normal Dispo: home today Plan/VTE VTE Prophylaxis Ordered?: No VTE Exclusion Mechanical Proph: N/A:VTE Prophy Ordered VTE Exclusion Pharmacological: Hemorrhage VS, I&O, 24H, Fishbone Vital Signs/I&O Vital Signs Date Time Temp Pulse Resp B/P (MAP) Pulse Ox O2 Delivery O2 Flow Rate FiO2 01/07/20 07:50 97.7 100 18 140/86 (104) 100 Room Air 01/04/20 21:40 10 I&O- Last 24 Hours up to 6 AM 01/07/20 06:00 Intake Total 2169 ml Output Total 3175 ml Balance -1006 ml Laboratory Data 24H LABS Laboratory Tests 2 01/07/20 05:02: Nucleated Red Blood Cells % (auto) 0.7H, Anion Gap 7L, Glomerular Filtration Rate > 60.0, Calcium Level 8.2L, Magnesium Level 1.9 CBC/BMP Laboratory Tests 01/07/20 05:02 JOANA MONSIVAIS MD Jan 07, 2020 10:19
--- NOTE | 2020-01-07 21:21 | DSES ---
DATE OF ADMISSION: 01/04/2020 DATE OF DISCHARGE: 01/07/2020 DISCHARGE DIAGNOSES: 1. Acute upper gastrointestinal bleed due to Mandie-Nuñez tear and distal ulcerative esophagitis. 2. Acute blood loss anemia due to above. 3. Acute traumatic rib fracture secondary to fall. 4. Chronic alcoholism with mild delirium tremens. 5. Hypokalemia. 6. Hypomagnesemia. 7. Lactic acidemia secondary to dehydration from blood loss, as well as underlying alcoholic liver disease. PROCEDURES PERFORMED DURING THIS HOSPITALIZATION: Esophagogastroduodenoscopy (EGD) with hemostatic clipping times three, no biopsies were taken, transfusion of 1 unit of packed red blood cells during this hospitalization. CONSULTANTS ON THE CASE: Dr. Marcos of the gastroenterology service. DISPOSITION: The patient is discharged home. LABORATORIES PENDING AT THE TIME OF DISCHARGE: None. DISCHARGE INSTRUCTIONS: The patient is instructed to take Carafate, as well as Protonix twice a day as prescribed. He is to abstain from any alcohol. He is to use Lidoderm for pain control. He is to abstain from any nonsteroidal antiinflammatory drug use. He is to followup with his primary care provider in approximately 1 weeks' time. CONDITION AT THE TIME OF DISCHARGE: Stable and improved from admission. RELEVANT LABORATORIES: White count 5.7, hemoglobin 9.3, hematocrit 26.8, platelet count 119,000. INR was 1.14. PT 14.4. Sodium 135, potassium 4.9, bicarbonate 29, anion gap 7, BUN 5, creatinine 0.52, glucose 97, calcium 8.2, magnesium 1.9. Urinalysis was unremarkable. Methicillin resistant Staphylococcus aureus (MRSA) PCR was negative. Procalcitonin level was 0.16. DISCHARGE MEDICATIONS: - folic acid 1 mg by mouth daily - Lidoderm patch daily - multivitamin one capsule daily - Protonix 40 mg twice a day - Carafate 1 gram every 6 hours for the next 30 days HOSPITAL COURSE: Mr. Penn is a 59-year-old gentleman with a history of chronic alcoholism. He had presented on 01/04/2020 as a transfer from an outside facility for evaluation of hematemesis. On arrival, the patient was noted to have 700 mL of active hematemesis. The patient was admitted under the care of Dr. Betts. GI was consulted. He was taken to the endoscopy suite and was found to have Mandie-Nuñez tear with active bleeding. He received hemostatic clipping times three with stability in his hemoglobin level. He was transitioned from Octreotide and Protonix drip the following day. The patient's diet was advanced and fluids were discontinued. He was maintained on Clinical [place] Withdrawal Assessment (CIWA) scale and required little amounts of Ativan during his stay. Clinically, the patient improved, and was evaluated by physical therapy (PT) and deemed to be safe to go home and was discharged in stable condition. A total of 30 minutes was spent completing all discharge paperwork.
== END 2020-01-07 13:10 | disposition home or self-care (01) | DRG 369 ==
LOC: M PCU 18:39
PROVIDERS: ADMIT General Practice; ATTEND Internal Medicine
PROC: 0W3P8ZZ Control Bleeding in Gastrointestinal Tract, Via Natural or Artificial Opening Endoscopic (ICD-10-PCS; principal; 2020-01-04 20:30)
PROC: 30233N1 Transfusion of Nonautologous Red Blood Cells into Peripheral Vein, Percutaneous Approach (ICD-10-PCS; 2020-01-06)
DX: K22.6 Gastro-esophageal laceration-hemorrhage syndrome (principal); D62 Acute posthemorrhagic anemia; E87.2 Acidosis; F10.231 Alcohol dependence with withdrawal delirium; S22.31XA Fracture of one rib, right side, initial encounter for closed fracture; I10 Essential (primary) hypertension; F32.9 Major depressive disorder, single episode, unspecified; Z91.5 Personal history of self-harm; K22.11 Ulcer of esophagus with bleeding; E87.6 Hypokalemia; K70.9 Alcoholic liver disease, unspecified; E83.42 Hypomagnesemia; E86.0 Dehydration; W19.XXXA Unspecified fall, initial encounter; Y92.012 Bathroom of single-family (private) house as the place of occurrence of the external cause